=== PATIENT | male | born 1950 | race Caucasian/White ===

== ENCOUNTER → 2019-05-29 | Outpatient (CLI) | payer BC, MEDICARE ==
--- NOTE | 2019-05-29 12:10 | XR ---
EXAMINATION TYPE: XR chest 2V DATE OF EXAM: 05/29/2019 COMPARISON: None INDICATION: Mild cough TECHNIQUE: Frontal and lateral views of the chest are obtained. FINDINGS: The heart size is normal. The pulmonary vasculature is normal. The lungs are clear. There is some hyperinflation flattening the diaphragms which could be associate d with COPD. IMPRESSION: 1. No acute pulmonary process. 2. COPD
== END | disposition home or self-care (01) ==
LOC: RADXRMAIN 11:23
PROVIDERS: ATTEND Family Medicine
DX: J44.9 Chronic obstructive pulmonary disease, unspecified (principal)
CPT/HCPCS: 71046

== ENCOUNTER 2019-09-27 07:18 | Day surgery (SDC) | payer MEDICARE, BC ==
[2019-09-26 08:25] VITALS: BMI 42.0
[~2019-09-27 07:18] MED LIST: LACTATED RINGERS 1,000 ML IV SCH; LIDOCAINE 1% (10MG/ML) FOR IV START INTRADERMA PRN
[2019-09-27 07:50] VITALS: TEMP 98.4
[2019-09-27] MEDS ORDERED: PROPOFOL 10 MG/ML 20 ML VIAL IV ONE (08:18)
[2019-09-27] MEDS ORDERED: LIDOCAINE 1% INJ 10MG/ML (20 ML MDV) ONE (08:18)
--- NOTE | 2019-09-27 08:19 | P.GSHP ---
History of Present Illness H&P Date: 09/27/19 CHIEF COMPLAINT: Colon screen HISTORY OF PRESENT ILLNESS: The patient is a 68-year-old male who presents for colon screen. Lower endoscopy was offered for further evaluation and management. PAST MEDICAL HISTORY: Please see list. PAST SURGICAL HISTORY: Please see list. MEDICATIONS: Please see list. ALLERGIES: Please see list. SOCIAL HISTORY: No illicit drug use FAMILY HISTORY: No reports of Crohn disease or ulcerative colitis. REVIEW OF ORGAN SYSTEMS: CONSTITUTIONAL: No reports of fevers or chills. PHYSICAL EXAM: VITAL SIGNS: Stable GENERAL: Well-developed pleasant in no acute distress. HEENT: No scleral icterus. Extraocular movements grossly intact. Moist buccal mucosa. NECK: Supple without lymphadenopathy. CHEST: Unlabored respirations. Equal bilateral excursions. CARDIOVASCULAR: Regular rate and rhythm. Distal 2+ pulses. ABDOMEN: Soft, nontender, nondistended. MUSCULOSKELETAL: No clubbing, cyanosis, or edema. ASSESSMENT: 1. Colon screen. PLAN: 1. Recommend proceeding with a lower endoscopy Past Medical History Past Medical History: COPD, GERD/Reflux, Hypertension, Sleep Apnea/CPAP/BIPAP Additional Past Medical History / Comment(s): uses cpap,hiatal hernia History of Any Multi-Drug Resistant Organisms: None Reported Additional Past Surgical History / Comment(s): colonoscopies,kidney stones removal,drained cyst on liver with another surgery later for partial removal of liver where cyst was located Past Anesthesia/Blood Transfusion Reactions: No Reported Reaction, Motion Sickness Additional Past Anesthesia/Blood Transfusion Reaction / Comment(s): no hx blood transfusion Smoking Status: Former smoker - Past Family History Mother Family Medical History: No Reported History Father Family Medical History: Cancer Sister(s) Additional Family Medical History / Comment(s): breast,lymphatic Brother(s) Family Medical History: Cancer Additional Family Medical History / Comment(s): pancreatic,nonhodgkin's lymphoma Medications and Allergies Home Medications Medication Instructions Recorded Confirmed Type Allopurinol [Zyloprim] 100 mg PO HS 09/26/19 09/27/19 History Cholecalciferol (Vitamin D3) 1,000 unit PO DAILY 09/26/19 09/27/19 History [Vitamin D3] Fluticasone/Umeclidin/Vilanter 1 inhalation INHALATION 1500 09/26/19 09/27/19 History [Trelegy Ellipta 100-62.5-25] Furosemide [Lasix] 20 mg PO 1500 09/26/19 09/27/19 History Lisinopril 20 mg PO 1500 09/26/19 09/27/19 History Multivit-Min/Folic/Vit K/Lycop 1 each PO DAILY 09/26/19 09/27/19 History [Men's Multivitamin Tablet] Omeprazole 20 mg PO 1500 09/26/19 09/27/19 History Allergies Allergy/AdvReac Type Severity Reaction Status Date / Time No Known Allergies Allergy Verified 09/27/19 07:43 Surgical - Exam Vital Signs Temp Pulse Resp BP Pulse Ox 98.4 F 105 H 24 131/63 95 09/27/19 07:48 09/27/19 07:48 09/27/19 07:48 09/27/19 07:48 09/27/19 07:48
--- NOTE | 2019-09-27 08:55 | P.PCN ---
Date of Procedure: 09/27/19 Description of Procedure: PREOPERATIVE DIAGNOSIS: Personal history of colon polyps POSTOPERATIVE DIAGNOSIS: Tubular adenoma hepatic flexure Tubular adenoma transverse colon Pauline adenoma ascending colon Sigmoid diverticulosis OPERATION: Colonoscopy to the cecum Colonoscopy with multiple hot snare polypectomies SURGEON: Wendie Rubio MD. ANESTHESIA: MAC. INDICATIONS: The patient is an 68-year-old male who presents with personal history of high risk colon polyps. Last colonoscopy 5 years. Benefits and risks were described and informed consent was obtained. DESCRIPTION OF PROCEDURE: The patient had undergone Suprep. He had been brought into the operating room and laid in the left lateral decubitus position. After adequate intravenous sedation, the rectum was examined with 2% lidocaine jelly. The prostate was unremarkable. External hemorrhoids were encountered. The rectal tone was within normal limits. No lesions were palpated in the rectal vault. An Olympus colonoscope was advanced to the cecum. Abdominal wall pressure was used to advance the scope through a highly redundant sigmoid colon. The prep was good. Sigmoid diverticulosis was encountered. Multiple colonic polyps were found and snare polypectomy. No evidence of focal colitis was found. Retroflexion of the scope demonstrated grade 2 internal hemorrhoids without active bleeding or inflammation. The colon was desufflated. The patient had tolerated the procedure well. Withdrawal time was over 6 minutes. FINDINGS: Aronchick preparation quality scale 2 (1-5) Internal hemorrhoids, grade 2 External hemorrhoids, grade 2 No arteriovenous malformations. Sigmoid diverticulosis with moderate redundancy Removal of 3 polyps: - Snare polypectomy mid transverse colon, 7 mm tubulovillous adenoma polyp. - Snare polypectomy hepatic flexure, 6 mm flat villous adenoma polyp. - Snare polypectomy of ascending colon, 5 mm flat villous adenoma polyp. No focal colitis. RECOMMENDATIONS: Given severity of tubular adenomas, recommend repeat colonoscopy 2 years, 2021. Plan - Discharge Summary Discharge Rx Participant: No New Discharge Prescriptions: Continue Omeprazole 20 mg PO 1500 Lisinopril 20 mg PO 1500 Furosemide [Lasix] 20 mg PO 1500 Allopurinol [Zyloprim] 100 mg PO HS Cholecalciferol (Vitamin D3) [Vitamin D3] 1,000 unit PO DAILY Multivit-Min/Folic/Vit K/Lycop [Men's Multivitamin Tablet] 1 each PO DAILY Fluticasone/Umeclidin/Vilanter [Trelegy Ellipta 100-62.5-25] 1 inhalation INHALATION 1500 Discharge Medication List Allopurinol [Zyloprim] 100 mg PO HS 09/26/19 [History] Cholecalciferol (Vitamin D3) [Vitamin D3] 1,000 unit PO DAILY 09/26/19 [History] Fluticasone/Umeclidin/Vilanter [Trelegy Ellipta 100-62.5-25] 1 inhalation INHALATION 1500 09/26/19 [History] Furosemide [Lasix] 20 mg PO 1500 09/26/19 [History] Lisinopril 20 mg PO 1500 09/26/19 [History] Multivit-Min/Folic/Vit K/Lycop [Men's Multivitamin Tablet] 1 each PO DAILY 09/26/19 [History] Omeprazole 20 mg PO 1500 09/26/19 [History] Follow up Appointment(s)/Referral(s): Wendie Rubio MD [STAFF PHYSICIAN] - As Needed Patient Instructions/Handouts: Colorectal Polyps (DC), Diverticulosis Diet (GEN), Diverticulosis (DC) Activity/Diet/Wound Care/Special Instructions: Repeat colonoscopy 2 years, 2021 Discharge Disposition: HOME SELF-CARE
[2019-09-27 09:09] VITALS: RESP 20
[2019-09-27 09:25] VITALS: BP 104/59; PULSE 91
== END 2019-09-27 09:39 | disposition home or self-care (01) ==
LOC: ORWHC2ENDO 07:18
PROVIDERS: ATTEND Surgery Plastic and Reconstructive Surgery
DX: Z12.11 Encounter for screening for malignant neoplasm of colon (principal); D12.2 Benign neoplasm of ascending colon; D12.3 Benign neoplasm of transverse colon; K57.30 Diverticulosis of large intestine without perforation or abscess without bleeding; K64.4 Residual hemorrhoidal skin tags; Q43.8 Other specified congenital malformations of intestine; K64.1 Second degree hemorrhoids; J44.9 Chronic obstructive pulmonary disease, unspecified; K21.9 Gastro-esophageal reflux disease without esophagitis; I10 Essential (primary) hypertension; G47.30 Sleep apnea, unspecified; K44.9 Diaphragmatic hernia without obstruction or gangrene; K08.409 Partial loss of teeth, unspecified cause, unspecified class; Z79.899 Other long term (current) drug therapy; Z79.51 Long term (current) use of inhaled steroids; Z86.010 Personal history of colon polyps; Z99.89 Dependence on other enabling machines and devices; Z98.890 Other specified postprocedural states; Z87.442 Personal history of urinary calculi; Z87.19 Personal history of other diseases of the digestive system; Z90.49 Acquired absence of other specified parts of digestive tract; Z87.898 Personal history of other specified conditions; Z87.891 Personal history of nicotine dependence; Z80.9 Family history of malignant neoplasm, unspecified; Z80.0 Family history of malignant neoplasm of digestive organs; Z80.7 Family history of other malignant neoplasms of lymphoid, hematopoietic and related tissues
CPT/HCPCS: 88305; 45385; J2001; J2704

== ENCOUNTER → 2019-11-30 | Outpatient (CLI) | payer MEDICARE, BC ==
[~2019-11-30] MED LIST changes: +DOBUTamine DRIP for NUC MED 500 MG in DEXTROSE/WATER 1 250ML.BAG IV ONE; -LACTATED RINGERS 1,000 ML IV SCH; -LIDOCAINE 1% (10MG/ML) FOR IV START INTRADERMA PRN
--- NOTE | 2019-11-30 11:33 | ECHOF ---
Referral Reason:R06.00 dyspnea, unspecified MEASUREMENTS -------- HEIGHT: 182.9 cm WEIGHT: 140.6 kg BP: RVIDd: 3.5 cm (< 3.3) IVSd: 1.7 cm (0.6 - 1.1) LVIDd: 3.7 cm (3.9 - 5.3) LVPWd: 1.8 cm (0.6 - 1.1) IVSs: 2.3 cm LVIDs: 2.4 cm LVPWs: 1.9 cm LAESV Index (A-L): 19.53 ml/m Ao Diam: 3.7* cm (2.0 - 3.7) AV Cusp: 1.8 cm (1.5 - 2.6) MV EXCURSION: 19.783 mm (> 18.000) MV EF SLOPE: 114 mm/s (70 - 150) EPSS: 0.6 cm MV E Williams: 0.79 m/s MV DecT: 184 ms MV A Williams: 0.94 m/s MV E/A Ratio: 0.83 RAP: 5.00 mmHg RVSP: 30.40 mmHg FINDINGS -------- This was a technically difficult study with suboptimal views. The left ventricular size is normal. There is moderate concentric left ventricular hypertrophy. O verall left ventricular systolic function is low-normal with, an EF between 50 - 55 %. The right ventricle is mildly enlarged. Normal LA size by volume 22+/-6 ml/m2. The right atrium was not well visualized. xx ml of Lumason was utilized for enhancement of images. Interatrial and interventricular septum intact. There is mild aortic valve sclerosis. There is no evidence of aortic regurgitation. There is no e vidence of aortic stenosis. No mitral regurgitation. Mild tricuspid regurgitation present. There is borderline pulmonary hypertension. The right ventr icular systolic pressure, as measured by Doppler, is 30.40mmHg. The pulmonic valve was not well visualized. There is no pulmonic regurgitation present. The aortic root size is normal. IVC Not well visulized. There is no pericardial effusion. CONCLUSIONS -------- 1. The left ventricular size is normal. 2. There is moderate concentric left ventricular hypertrophy. 3. Overall left ventricular systolic function is low-normal with, an EF between 50 - 55 %. 4. The right ventricle is mildly enlarged. 5. There is mild aortic valve sclerosis. 6. Mild tricuspid regurgitation present. 7. There is borderline pulmonary hypertension. DRUGLESS PHYSICIAN: Sherlyn Michaud RDCS
--- NOTE | 2019-11-30 11:42 | P.STRESS ---
- Stress Test Note Stress Test Results/Findings: Exam Performed: dobutamine stress echo with con Exam Date: 11/30/19 Reason for Exam: Dyspnea Height: 6 ft Weight: 310 kg Protocol: Dobutamine stress echo Stage: 3 Duration of Exercise: 8:30 Resting Heart Rate: 82 Resting Blood Pressure: 190/77 Maximum Achieved Heart Rate: 140 Maximum Achieved Blood Pressure: 172/65 85% PMHR: 128 100% PMHR: 151 METS: Technologist Comment: Stress Test Results/Findings: Patient underwent dobutamine stress echo with infusion of dobutamine into Stage 3 for a total of 8 minutes and 30 seconds. Patient's maximum heart rate was 140 which represented 92 % age-predicted maximum heart rate. Stress EKG portion: At baseline patient's EKG showed normal sinus rhythm with a rate of 82 bpm, normal axis, no significant ST or T-wave abnormalities. At peak dobutamine infusion, EKG showed nonspecific 0.[address] depressions in the infe rolateral leads. Stress echo portion: 2-D echocardiogram was performed in the parasternal long, personal short, apical 2 and apical four-chamber views at rest, low-dose, peak infusion and in recovery . At baseline, echocardiogram showed left ventricular ejection fraction 60% without wall motion abnormalities. With peak infusion, echocardiogram shows improvement in left ventricular ejection fraction, increase contractility, decrease in left ventricular dimension without wall motion abnormalities consistent with a normal response to dobutamine. Conclusions: 1. Normal stress EKG and echo response to dobutamine infusion without any evidence of inducible ischemia.
--- NOTE | 2019-11-30 15:23 | ECHOS ---
Stress Test Results/Findings: Exam Performed: dobutamine stress echo with con Exam Date: 11/30/19 Reason for Exam: Dyspnea Height: 6 ft Weight: 310 kg Protocol: Dobutamine stress echo Stage: 3 Duration of Exercise: 8:30 Resting Heart Rate: 82 Resting Blood Pressure: 190/77 Maximum Achieved Heart Rate: 140 Maximum Achieved Blood Pressure: 172/65 85% PMHR: 128 100% PMHR: 151 METS: Technologist Comment: Stress Test Results/Findings: Patient underwent dobutamine stress echo with infusion of dobutamine into Stage 3 for a total of 8 minutes and 30 seconds. Patient's maximum heart rate was 140 which represented 92 % age-predicted maximum heart rate. Stress EKG portion: At baseline patient's EKG showed normal sinus rhythm with a rate of 82 bpm, normal axis, no significant ST or T-wave abnormalities. At peak dobutamine infusion, EKG showed nonspecific 0.[address] depressions in the inferolateral leads. Stress echo portion: 2-D echocardiogram was performed in the parasternal long, personal short, apical 2 and apical four-chamber views at rest, low-dose, peak infusion and in recovery. At baseline, echocardiogram showed left ventricular ejection fraction 60% without wall motion abnormalities. With peak infusion, echocardiogram shows improvement in left ventricular ejection fraction, increase contractility, decrease in left ventricular dimension without wall motion abnormalities consistent with a normal response to dobutamine. Conclusions: 1. Normal stress EKG and echo response to dobutamine infusion without any evidence of inducible ischemia. MTDD
== END | disposition home or self-care (01) ==
LOC: RADECHMAIN 08:41
PROVIDERS: ATTEND Family Medicine
DX: I08.2 Rheumatic disorders of both aortic and tricuspid valves (principal); I27.20 Pulmonary hypertension, unspecified; R06.00 Dyspnea, unspecified
CPT/HCPCS: C8929; C8930; J1250; Q9950; 93306; 93351

== ENCOUNTER → 2020-02-06 | Outpatient (CLI) | payer MEDICARE, BC ==
--- NOTE | 2020-02-06 16:04 | XR ---
EXAMINATION TYPE: XR knee complete RT DATE OF EXAM: 02/06/2020 COMPARISON: NONE HISTORY: 69-year-old male M25.561 TECHNIQUE: 3 views FINDINGS: Moderate to severe loss of cartilage and joint space compartment of the medial compartment and mild w ithin the lateral compartment. Dominant degenerative change of the patellofemoral compartment with ma rginal spurring and irregularity of the articular subchondral bone. Small knee joint effusion. Nonspe cific anterior soft tissue swelling. Extensor mechanism appears intact. No acute fracture, subluxatio n, dislocation. IMPRESSION: 1. Tricompartment osteoarthrosis, moderate to severe in the medial compartment and probably within th e patellofemoral compartment as well. 2. Small knee joint effusion is nonspecific, probably reactive. Additional anterior soft tissue swell ing.
== END | disposition home or self-care (01) ==
LOC: RADXRMAIN 14:12
PROVIDERS: ATTEND Family Medicine
DX: M17.11 Unilateral primary osteoarthritis, right knee (principal)

== ENCOUNTER 2021-06-17 08:28 | Day surgery (SDC) | payer BC, MEDICARE ==
[2021-06-15 10:16] VITALS: BMI 39.3
[~2021-06-17 08:28] MED LIST changes: -DOBUTamine DRIP for NUC MED 500 MG in DEXTROSE/WATER 1 250ML.BAG IV ONE; +LACTATED RINGERS 1,000 ML IV SCH
[2021-06-17 08:54] VITALS: TEMP 97.5
[2021-06-17] MEDS ORDERED: LIDOCAINE 1% (10MG/ML) FOR IV START INTRADERMA ONE (08:56)
--- NOTE | 2021-06-17 09:04 | P.GSHP ---
History of Present Illness H&P Date: 06/17/21 CHIEF COMPLAINT: Colon screen HISTORY OF PRESENT ILLNESS: The patient is a 70-year-old male who presents for colon screen. Lower endoscopy was offered for further evaluation and management. PAST MEDICAL HISTORY: Please see list. PAST SURGICAL HISTORY: Please see list. MEDICATIONS: Please see list. ALLERGIES: Please see list. SOCIAL HISTORY: No illicit drug use FAMILY HISTORY: No reports of Crohn disease or ulcerative colitis. REVIEW OF ORGAN SYSTEMS: CONSTITUTIONAL: No reports of fevers or chills. PHYSICAL EXAM: VITAL SIGNS: Stable GENERAL: Well-developed pleasant in no acute distress. HEENT: No scleral icterus. Extraocular movements grossly intact. Moist buccal mucosa. NECK: Supple without lymphadenopathy. CHEST: Unlabored respirations. Equal bilateral excursions. CARDIOVASCULAR: Regular rate and rhythm. Distal 2+ pulses. ABDOMEN: Soft, nontender, nondistended. MUSCULOSKELETAL: No clubbing, cyanosis, or edema. ASSESSMENT: 1. Colon screen. PLAN: 1. Recommend proceeding with a lower endoscopy Past Medical History Past Medical History: COPD, GERD/Reflux, Hearing Disorder / Deafness, Hypertension, Osteoarthritis (OA), Sleep Apnea/CPAP/BIPAP Additional Past Medical History / Comment(s): uses cpap,hiatal hernia,[place], [place] History of Any Multi-Drug Resistant Organisms: None Reported Additional Past Surgical History / Comment(s): colonoscopies,kidney stones removal,drained cyst on liver with another surgery later for partial removal of liver where cyst was located, Past Anesthesia/Blood Transfusion Reactions: Motion Sickness Additional Past Anesthesia/Blood Transfusion Reaction / Comment(s): no hx blood transfusion Smoking Status: Former smoker - Past Family History Mother Family Medical History: No Reported History Father Family Medical History: Cancer Sister(s) Family Medical History: Cancer Additional Family Medical History / Comment(s): breast,lymphatic Brother(s) Family Medical History: Cancer Additional Family Medical History / Comment(s): pancreatic,nonhodgkin's lymphoma Medications and Allergies Home Medications Medication Instructions Recorded Confirmed Type Cholecalciferol (Vitamin D3) 1,000 unit PO DAILY 09/26/19 06/15/21 History [Vitamin D3] Fluticasone/Umeclidin/Vilanter 1 inhalation INHALATION HS 09/26/19 06/15/21 History [Trelegy Ellipta 100-62.5-25] Multivit-Min/Folic/Vit K/Lycop 1 each PO DAILY 09/26/19 06/15/21 History [Men's Multivitamin Tablet] Omeprazole 20 mg PO 1500 09/26/19 06/15/21 History allopurinoL [Zyloprim] 100 mg PO HS 09/26/19 06/15/21 History lisinopriL 20 mg PO 1500 09/26/19 06/15/21 History Super Food Green 2 tab PO DAILY 06/15/21 06/15/21 History hydroCHLOROthiazide [Hydrodiuril] 25 mg PO 1500 06/15/21 06/15/21 History Allergies Allergy/AdvReac Type Severity Reaction Status Date / Time No Known Allergies Allergy Verified 09/27/19 07:43 Surgical - Exam Vital Signs Temp Pulse Resp BP Pulse Ox 97.5 F L 95 20 121/75 98 06/17/21 08:52 06/17/21 08:52 06/17/21 08:52 06/17/21 08:52 06/17/21 08:52
[2021-06-17] MEDS ORDERED: LIDOCAINE 1% INJ 10MG/ML (20 ML MDV) ONE (09:26)
[2021-06-17] MEDS ORDERED: PROPOFOL 10 MG/ML 20 ML VIAL IV ONE (09:26)
--- NOTE | 2021-06-17 10:24 | P.PCN ---
Date of Procedure: 06/17/21 Description of Procedure: PREOPERATIVE DIAGNOSIS: Personal history of colon polyps POSTOPERATIVE DIAGNOSIS: Tubular adenoma ascending colon Tubular adenoma hepatic flexure Tubular adenoma transverse colon Sigmoid diverticulosis Internal hemorrhoids, grade 2 OPERATION: Colonoscopy to the ileocecal valve and appendiceal orifice, cecum Colonoscopy with hot snare polypectomy SURGEON: Wendie Rubio MD. ANESTHESIA: MAC. INDICATIONS: The patient is an 70-year-old male who presents with personal history of colon polyps. Last colonoscopy less than 5 years ago. Benefits and risks were described and informed consent was obtained. DESCRIPTION OF PROCEDURE: The patient had undergone Sutab prep. The patient had been brought into the operating room and laid in the left lateral decubitus position. After adequate intravenous sedation, the rectum was examined with 2% lidocaine jelly. The prostate was unremarkable. No external hemorrhoids were encountered. The rectal tone was within normal limits. No lesions were palpated in the rectal vault. An Olympus colonoscope was advanced until the cecum, ileocecal valve and appendiceal orifice were clearly viewed. The prep was excellent. Sigmoid diverticulosis was encountered. Colonic polyps were found and removed. No evidence of focal colitis was found. Retroflexion of the scope demonstrated grade 2 internal hemorrhoids without active bleeding or inflammation. The colon was desufflated. The patient had tolerated the procedure well. Withdrawal time was over 6 minutes. FINDINGS: Aronchick preparation quality scale 1 (1-5) Internal hemorrhoids, grade 2 No external hemorrhoids, grade 4. No arteriovenous malformations. Sigmoid diverticulosis Removal of 6 polyps: - Snare polypectomy 4, ascending colon polyp, 3 to 7 mm tubulovillous adenomas - Snare polypectomy proximal transverse colon, 11 mm flat villous adenoma polyp. - Snare polypectomy hepatic flexure, 8 mm flat villous adenoma polyp No focal colitis. RECOMMENDATIONS: Given severity of tubular adenomas, recommend repeat colonoscopy 2 years, 2023 Plan - Discharge Summary Discharge Rx Participant: No New Discharge Prescriptions: Continue Omeprazole 20 mg PO 1500 lisinopriL 20 mg PO 1500 allopurinoL [Zyloprim] 100 mg PO HS Cholecalciferol (Vitamin D3) [Vitamin D3] 1,000 unit PO DAILY Multivit-Min/Folic/Vit K/Lycop [Men's Multivitamin Tablet] 1 each PO DAILY Fluticasone/Umeclidin/Vilanter [Trelegy Ellipta 100-62.5-25] 1 inhalation INHALATION HS hydroCHLOROthiazide [Hydrodiuril] 25 mg PO 1500 Super Food Green 2 tab PO DAILY Discharge Medication List Cholecalciferol (Vitamin D3) [Vitamin D3] 1,000 unit PO DAILY 09/26/19 [History] Fluticasone/Umeclidin/Vilanter [Trelegy Ellipta 100-62.5-25] 1 inhalation INHALATION HS 09/26/19 [History] Multivit-Min/Folic/Vit K/Lycop [Men's Multivitamin Tablet] 1 each PO DAILY 09/26/19 [History] Omeprazole 20 mg PO 1500 09/26/19 [History] allopurinoL [Zyloprim] 100 mg PO HS 09/26/19 [History] lisinopriL 20 mg PO 1500 09/26/19 [History] Super Food Green 2 tab PO DAILY 06/15/21 [History] hydroCHLOROthiazide [Hydrodiuril] 25 mg PO 1500 06/15/21 [History] Follow up Appointment(s)/Referral(s): Wendie Rubio MD [STAFF PHYSICIAN] - As Needed Patient Instructions/Handouts: Diverticulosis (DC), Colorectal Polyps (GEN), Diverticulosis Diet (GEN) Activity/Diet/Wound Care/Special Instructions: Repeat colonoscopy in 2 years, 2023 Discharge Disposition: HOME SELF-CARE
[2021-06-17 10:29] VITALS: BP 118/69; PULSE 86; RESP 16
== END 2021-06-17 11:13 | disposition home or self-care (01) ==
LOC: ORWHC2ENDO 08:28
PROVIDERS: ATTEND Surgery Plastic and Reconstructive Surgery
DX: Z12.11 Encounter for screening for malignant neoplasm of colon (principal); D12.2 Benign neoplasm of ascending colon; D12.3 Benign neoplasm of transverse colon; K57.30 Diverticulosis of large intestine without perforation or abscess without bleeding; K64.1 Second degree hemorrhoids; Z86.010 Personal history of colon polyps; I10 Essential (primary) hypertension; J44.9 Chronic obstructive pulmonary disease, unspecified; K21.9 Gastro-esophageal reflux disease without esophagitis; M19.90 Unspecified osteoarthritis, unspecified site; K44.9 Diaphragmatic hernia without obstruction or gangrene; H91.90 Unspecified hearing loss, unspecified ear; M10.9 Gout, unspecified; G47.33 Obstructive sleep apnea (adult) (pediatric); Z79.51 Long term (current) use of inhaled steroids; Z79.899 Other long term (current) drug therapy; Z87.442 Personal history of urinary calculi; Z98.890 Other specified postprocedural states; Z87.891 Personal history of nicotine dependence; Z80.3 Family history of malignant neoplasm of breast; Z80.7 Family history of other malignant neoplasms of lymphoid, hematopoietic and related tissues; Z80.0 Family history of malignant neoplasm of digestive organs
CPT/HCPCS: 88305; 45385; J2001; J2704

== ENCOUNTER → 2021-12-22 | Outpatient (CLI) | payer MEDICARE ==
[2021-12-22 10:35] LABS: Partial Thromboplastin Time 24.7 sec (22.0-30.0); Prothrombin Time 10.7 sec (9.0-12.0)
[2021-12-22 14:15] LABS: HCT 40.5 % (39.6-50.0); HGB 13.1 g/dL (13.0-17.0); MCH 31.7 pg (27.0-32.0); MCHC 32.3 g/dL (32.0-37.0); MCV 98.1 fL (80.0-97.0); Mean Platelet Volume 11.3 fL (9.5-12.2); NRBC Per 100 WBC 0 /100 WBCS (0.0-0.0); Platelet Count 265 X 10*3/uL (140-440); RBC 4.13 X 10*6/uL (4.40-5.60); RDW 12.9 % (11.5-14.5); WBC 9.57 X 10*3/uL (4.50-10.00)
[2021-12-22 14:30] LABS: African American GFR (CKD) 87.4 (60.0-200.0); Albumin 4.2 g/dL (3.8-4.9); Albumin/Globulin Ratio 1.45 (1.60-3.17); Anion Gap 12.2 mmol/L (10.00-18.00); BUN/Creat Ratio 14.6 Ratio (12.00-20.00); Blood Urea Nitrogen 14.6 mg/dL (9.0-27.0); Calcium 9.4 mg/dL (8.7-10.3); Carbon Dioxide 26.8 mmol/L (20.0-27.5); Globulin 2.9 g/dL (1.6-3.3); Non-African American GFR(CKD) 75.4 (60.0-200.0); Potassium 4.1 mmol/L (3.5-5.5); Total Bilirubin 0.5 mg/dL (0.30-1.20); Total Protein 7.1 g/dL (6.2-8.2)
[2021-12-22 15:36] LABS: Appearance,Urine Clear (Clear); Bilirubin,Urine Negative (Negative); Blood,Urine Negative (Negative); Color,Urine Yellow (Yellow); Ketones,Urine Negative (Negative); Nitrite,Urine Negative (Negative); Specific Gravity,Urine 1.014 (1.001-1.030); Urobilinogen,Urine 0.2 (0.2,1.0)
== END | disposition home or self-care (01) ==
LOC: LABPAT 09:36
PROVIDERS: ATTEND Orthopaedic Surgery
DX: Z01.812 Encounter for preprocedural laboratory examination (principal); M17.11 Unilateral primary osteoarthritis, right knee
CPT/HCPCS: 80053; 81003; 85027; 85610; 85730; 87070; 93005

== ENCOUNTER → 2021-12-31 | Outpatient (CLI) | payer MEDICARE ==
--- NOTE | 2022-01-01 10:41 | CA ---
Transthoracic Echo Report Name: Esau Arredondo Age: 71 Gender: M : 1950 Exam Date: 12/31/2021 13:37 Exam Location: [place] [facility] Ht (in): 72 Wt (lb): 300 Ordering Physician: Barrington Snider DO Attending/Referring Phys: Eugene Stewart DO Claim Examiner Sherlyn Michaud RDCS Procedure CPT: Indications: R06.00 Dyspnea Cardiac Hx: Technical Quality: Fair Contrast 1: Total Dose (mL): Contrast 2: Total Dose (mL): MEASUREMENTS (Male / Female) Normal Values 2D ECHO LV Diastolic Diameter PLAX 3.6 cm 4.2 - 5.9 / 3.9 - 5.3 cm LV Systolic Diameter PLAX 2.7 cm IVS Diastolic Thickness 1.7 cm 0.6 - 1.0 / 0.6 - 0.9 cm LVPW Diastolic Thickness 1.4 cm 0.6 - 1.0 / 0.6 - 0.9 cm LV Relative Wall Thickness 0.9 RV Internal Dim ED PLAX 3.4 cm M-MODE Aortic Root Diameter MM 3.9 cm LA Systolic Diameter MM 3.1 cm LA Ao Ratio MM 0.8 AV Cusp Separation MM 2.2 cm DOPPLER AV Peak Velocity 124.1 cm/s AV Peak Gradient 6.2 mmHg LVOT Peak Velocity 111.2 cm/s LVOT Peak Gradient 4.9 mmHg MV Area PHT 2.1 cm??? Mitral E Point Velocity 67.4 cm/s Mitral A Point Velocity 92.1 cm/s Mitral E to A Ratio 0.7 MV Deceleration Time 360.3 ms TR Peak Velocity 181.9 cm/s TR Peak Gradient 13.2 mmHg Right Ventricular Systolic Press 18.2 mmHg FINDINGS Left Ventricle Moderately increased left ventricular wall thickness. Normal left ventricular systolic function with no obvious regional wall motion abnormalities. Left ventricular ejection fraction is estimated at 50-55 %. Right Ventricle Right ventricle not well visualized. Mild right ventricular dilatation. Right Atrium Right atrium not well visualized. Left Atrium Normal left atrial size. Mitral Valve No mitral stenosis, regurgitation or prolapse. Aortic Valve No aortic valve stenosis or regurgitation. Tricuspid Valve Mild tricuspid regurgitation. Pulmonic Valve Trace pulmonic regurgitation. Pericardium No pericardial effusion. Aorta Normal size aortic root and proximal ascending aorta. CONCLUSIONS Technically difficult study Normal left ventricular dimension and systolic function. Moderate concentric left ventricular hypertrophy Poorly visualized intracardiac valves Previewed by: Dr. Patrick Meza MD (Electronically Signed) Final Date: 01 January 2022 10:40
== END | disposition home or self-care (01) ==
LOC: RADECHMAIN 13:22
PROVIDERS: ATTEND Family Medicine
DX: R06.00 Dyspnea, unspecified (principal); I51.7 Cardiomegaly
CPT/HCPCS: 93306

== ENCOUNTER 2022-01-04 05:57 | Day surgery (SDC) | payer MEDICARE ==
[2021-12-30 10:00] VITALS: BMI 40.6
[~2022-01-04 05:57] MED LIST changes: +ACETAMINOPHEN TAB 500 MG TAB PO PRN; +GABAPENTIN 300 MG CAP PO PRN; -LACTATED RINGERS 1,000 ML IV SCH; +MELOXICAM 7.5 MG TAB PO PRN; +TRANEXAMIC ACID IN NACL,ISO-OS 1,000 MG in SALINE 1 100ML.BAG IVPB PRN; +ceFAZolin 3 GM in SODIUM CHLORIDE 0.9% 100 ML IVPB PRN
[2022-01-04] MEDS ORDERED: ONDANSETRON 4 MG/2 ML VIAL IVP ONE (05:59)
[2022-01-04] MEDS ORDERED: HYDROmorphone 0.5 MG/0.5 ML SYRINGE IVP PRN ×4 (05:59→06:55)
[2022-01-04] MEDS ORDERED: LIDOCAINE 1% (10MG/ML) FOR IV START INTRADERMA PRN (05:59)
[2022-01-04] MEDS ORDERED: NALOXONE 0.4 MG/ML 1 ML VIAL IV PRN (06:55)
[2022-01-04] MEDS ORDERED: NA PHOS,M-B/NA PHOS,DI-BA 133 ML ENEMA RECTAL PRN (06:55)
[2022-01-04] MEDS ORDERED: MAGNESIUM HYDROXIDE 2,400 MG/10 ML CUP PO PRN (06:55)
[2022-01-04] MEDS ORDERED: ONDANSETRON 4 MG/2 ML VIAL IVP PRN (06:55)
[2022-01-04] MEDS ORDERED: bisacodyL 10 MG SUPP RECTAL PRN (06:55)
[2022-01-04] MEDS ORDERED: HYDROcodone/APAP 7.5-325MG 1 EACH TAB PO PRN (06:58)
[2022-01-04] MEDS ORDERED: LACTATED RINGERS 1,000 ML IV ONE ×2 (07:00→08:36)
[2022-01-04] MEDS ORDERED: MIDAZOLAM 2 MG/2 ML VIAL IVP ONE (07:04)
[2022-01-04] MEDS ORDERED: SODIUM CHLORIDE 0.9% (PF) 10 ML VIAL ONE (07:25)
[2022-01-04] MEDS ORDERED: ROPIVACAINE 5 MG/ML 30 ML VIAL ONE (07:25)
[2022-01-04] MEDS ORDERED: fentaNYL (PF) 50 MCG/ML 2 ML AMP ONE (07:25)
[2022-01-04] MEDS ORDERED: TRANEXAMIC ACID IN NACL,ISO-OS 1,000 MG/100 ML BAG ONE (07:25)
[2022-01-04] MEDS ORDERED: PHENYLEPHRINE-0.9% NACL SYG 1,000 MCG/10 ML SYRINGE ONE (07:25)
[2022-01-04] MEDS ORDERED: PROPOFOL 10 MG/ML 20 ML VIAL IV ONE (07:25)
[2022-01-04] MEDS ORDERED: MIDAZOLAM 2 MG/2 ML VIAL ONE (07:25)
[2022-01-04] MEDS ORDERED: DEXAMETHASONE SOD PHOSPHATE 4 MG/ML 1 ML VIAL ONE (07:25)
[2022-01-04] MEDS ORDERED: ceFAZolin 1,000 MG in SODIUM CHLORIDE 0.9% 1,000 ML IRRIGATION ONE (07:29)
--- NOTE | 2022-01-04 07:53 | P.ANPRN ---
Procedure Note - Anesthesia - Nerve Block Performed Right Adductor Canal Infusion Time Out Performed: Yes (702) Date of Procedure: 01/04/22 Procedure Start Time: 07:03 Procedure Stop Time: 07:13 Location of Patient: PreOp Indication: Acute Post-Operative Pain, Requested by Surgeon Sedation Type: Sedate with meaningful contact maintained Preparation: Sterile Prep, Sterile Dressing Position: Supine Catheter: Indwelling Needle Types: Pajunk Needle Gauge: 18 Ultrasound used to visualize needle placement: Yes Ultrasound used to observe medication spread: Yes Injectate: Other (see comment) (20 ml of block solution containing 10 ml of 0.5% ropivacaine, 10 ML of preservative-free 0.9% normal saline) Blood Aspirated: No Pain Paresthesia on Injection Noted: No Resistance on Injection: Normal Image Stored and Saved: Yes Events: Uneventful and Well Tolerated Right iPack Single Time Out Performed: Yes (702) Date of Procedure: 01/04/22 Procedure Start Time: 07:13 Procedure Stop Time: :18 Location of Patient: PreOp Indication: Acute Post-Operative Pain, Requested by Surgeon Sedation Type: Sedate with meaningful contact maintained Preparation: Sterile Prep Position: Supine Catheter: None Needle Types: Pajunk Needle Gauge: 21 Ultrasound used to visualize needle placement: Yes Ultrasound used to observe medication spread: Yes Injectate: 0.5% Ropivacaine (see comment for volume) Blood Aspirated: No Pain Paresthesia on Injection Noted: No Resistance on Injection: Normal Image Stored and Saved: Yes Events: Uneventful and Well Tolerated (20 ml of block solution containing 10 ml of 0.5% ropivacaine, 9 ML of preservative-free 0.9% normal saline mixed with 4MG of dexamethasone)
--- NOTE | 2022-01-04 08:45 | P.OP ---
Date of Procedure: 01/04/22 Preoperative Diagnosis: Severe osteoarthritis right knee Postoperative Diagnosis: Severe osteoarthritis right knee Procedure(s) Performed: Right total knee arthroplasty Implants: [employer] Journey II CR Oxinium cruciate retaining femoral component size 7, right [employer] Journey nonporous tibial baseplate size 6, right [employer] Journey II, XLPE Deep Dished articular insert, size11 mm, Size 5- 6, right [employer] Journey Ирина II resurfacing patellar component, oval, 32 mm All components were cemented using Palacos R bone cement The articulation is Oxinium on polyethylene Anesthesia: spinal Surgeon: Eugene Stewart River Expedition Guide #1: Daja Lawton Estimated Blood Loss (ml): 50 Pathology: other (Bone cartilage) Condition: stable Disposition: PACU Indications for Procedure: After failure of conservative treatment we discussed the surgical and nonsurgical treatment options at length. Patient wishes to proceed with a total knee arthroplasty. Complications specific to this procedure were discussed at length, including but not limited to infection, bleeding, stiffness, and nerve injury. Covid-19 was also discussed at length with the patient, and they are aware of the current policies and procedures. The patient was given the option of delaying surgery, but they elect to proceed knowing these risks. Patient is aware of all these complications and informed consent was obtained Operative Findings: The operative findings are consistent with severe osteoarthritis of the right knee Description of Procedure: Patient was seen in the preoperative area and the consent was reviewed and the operative site was marked with a skin marker. The patient verified the procedure and the operative site. An adductor canal pain catheter and an iPACK block was placed by anesthesia in the preoperative area. The patient was then brought to the operating room and given preoperative antibiotics intravenously. A gram of transexamic acid was given intravenously. A spinal anesthetic was administered by the anesthesia department. A tourniquet was placed on the upper thigh and the lower extremity was prepped with chlorhexidine and draped in usual sterile fashion. A universal timeout was then performed which confirmed the patient's name, surgical site, ALLERGIES, and consent. The lower extremity was then exsanguinated and tourniquet was inflated to 250 mmHg. A standard anterior midline approach to the knee was performed. The skin and subcutaneous tissue were sharply dissected down to the patellar tendon. A medial parapatellar arthrotomy was then performed. The knee was then extended, the patellar was everted, and the knee was again flexed. The infra-patellar fat pad was removed in order to enhance exposure. The anterior horns of both menisci were excised, and a release was performed to the posterior medial aspect of the knee. On gross visual inspection, there was complete loss of articular cartilage in the medial and patellofemoral joint spaces. There was also significant cartilage damage in the lateral compartment. There were multiple periarticular osteophytes globally about the knee which were then removed with a Ronguer. The femoral canal was then opened with the 9.5 mm intramedullary drill. The 8 mm intramedullary jurgen was then inserted into the femoral canal with the distal femoral cutting guide set for 5 of valgus. The distal femoral cutting block was then pinned in place. The intramedullary jurgen was then removed, and the distal femur was then cut. The cutting block was then removed and the cut was checked for symmetry. The resected bone was then measured to confirm the appropriate distal femoral resection. Next, the sizing guide was then placed and set for 3 external rotation based off of the epicondylar axis and Whitesides line. Pins were then placed and the drill holes, and the femur was sized with the sizing stylus. The pins were then removed, and the sizing guide was then removed. The spikes of the femoral block was then placed into the predrilled holes, and malleted into place. Two 45 mm pins were then placed into the fixation holes on the cutting block. An wayne wing was then used to ensure there would be no notching with the anterior cut. The anterior condyles were cut without notching. The anterior chord cut was then performed, followed by the posterior cut, posterior chamfer cut, and the anterior chamfer cut. The collateral ligaments were protected during the entire process. The cutting block was then removed. Any remaining bone and osteophytes were removed from the femur with a Ronguer. The femoral canal was plugged with autologous bone. Attention was then directed to the tibia. The remaining ACL was removed with a Ronguer, and the tibia was then gently subluxed forward with a large bent knee retractor. Any remaining menisci were excised. The posterior lateral corner was cauterized in order to coagulate the lateral geniculate artery. The extra medullary tibial cutting guide was then placed, set for the appropriate rotation, slope, and depth of resection. The proximal tibia cutting guide was then pinned in place. Proximal tibia was then cut and sized. The femoral trial was placed. A narrow saw blade was then used to remove the anterior intracondylar femoral bone. The CR notch trial was then placed. The tibial trial was placed with the appropriate-sized insert. The knee was able to fully extend and flex to 130 and was stable throughout all range of motion. The knee was then extended and the patella was everted. Patella was then measured, and then using an osteotomy guide, the patella was cut at the appropriate level. The patella was then measured and drilled and the patella trial was then placed. The knee was then taken through range of motion with the patella trial and the patella tracked normally using the no thumbs technique. The knee was then extended patella trial was then removed and the patella was everted. Knee was then flexed and lug holes were drilled through the femoral trial and the femoral trial was then removed. The tibial was then re-exposed, and the tibial broach guide was then pinned in place after it was set for the appropriate rotation to allow for the most coverage without overhang. The tibia was then reamed and broached. The cut surfaces of bone were then irrigated with pulsatile lavage. The knee was also irrigated with Irrisept solution. The components were then opened, the cement was mixed, and the components were then cemented in place. The cement was allowed to harden with the knee in full extension. After the cemented hardened, the tourniquet was released and hemostasis was obtained. A second gram of transexamic acid was given intravenously. The knee was again irrigated. The knee was again taken through range of motion and found to be stable throughout all range of motion of 0-130, and the patella tracked normally. The fascia was then closed with 0 Vicryl followed by #2 strata fix suture. The subcutaneous tissue was closed with 3-0 Vicryl and 3-0 strata fix. Exofin glue was used for the skin and placed with the knee in flexion. After the glue had dried, and Optafoam silver impregnated dressing was applied. The patient was then transferred to recovery room in stable condition. The reference assistant MEÑO Mistry was required due the complexity surgery and the need for a skilled surgical garment assembler. She assisted in positioning, draping, retraction, and closure of the wound.
--- NOTE | 2022-01-04 09:48 | XR ---
EXAMINATION TYPE: XR knee limited RT DATE OF EXAM: 01/04/2022 9:42 AM INDICATION: Patient age:Male; 71 years old; Reason for study: Evaluation for Postop abnormality and alignment; [facility]. COMPARISON: Right knee radiograph 02/06/2020. TECHNIQUE: The Right knee(s) was examined in frontal and crosstable lateral projections. FINDINGS: Postsurgical changes from total knee arthroplasty with distal femoral and proximal tibial components. Hardware appears intact with appropriate alignment. Additional postsurgical changes of t he posterior patella. There is associated soft tissue gas and edema identified. No acute fracture or dislocation. IMPRESSION: Postsurgical changes from right total knee arthroplasty. Hardware appears intact with appropriate ali gnment.
[2022-01-04] MEDS ORDERED: ROPIVACAINE 1,100 MG, SODIUM CHLORIDE 0.9% 500 ML 330 ML, EMPTY PAIN BALL 1 EACH MISCELLANE PRN ×2 (10:06)
[2022-01-04] MEDS: LACTATED RINGERS 1,000 ML IV SCH (11:42)
[2022-01-04] MEDS: SODIUM CHLORIDE 0.9% 1,000 ML IV SCH ×2 (12:24→19:29)
[2022-01-04] MEDS: HYDROcodone/APAP 7.5-325MG 1 EACH TAB PO PRN ×2 (13:39→23:49)
[2022-01-04] MEDS: IPRATROPIUM 0.5 MG/2.5 ML NEBU INHALATION SCH ×2 (16:40→20:16)
[2022-01-04] MEDS: ASPIRIN 325 MG TAB PO SCH (19:27)
[2022-01-04] MEDS: SYMBICORT 80-4.5 MCG INHALER INHALATION SCH (20:16)
[2022-01-04] MEDS ORDERED: allopurinoL 100 MG TAB PO SCH (21:00)
[2022-01-04] MEDS ORDERED: SENNOSIDES-DOCUSATE SODIUM 1 EACH TAB PO SCH (21:00)
--- NOTE | 2022-01-04 22:04 | P.CONS ---
History of Present Illness - Reason for Consult Consult date: 01/04/22 Medical management - Chief Complaint Status post right total knee arthroplasty - History of Present Illness Patient is a 71-year-old male with a known history of obstructive sleep apnea on CPAP at home, COPD, hypertension, GERD, hearing disorder/deafness and prior history of smoking was admitted to hospital for elective right total knee arthroplasty. Patient is postoperative day 0. Status post right total knee arthroplasty. Postoperatively blood pressure was low. Patient otherwise denied any complaints of dizziness or lightheadedness. No chest pain or shortness of breath no cough or sputum production. Denies any dysuria or hematuria. Medicine service was consulted for medical management. Review of Systems Constitutional: Patient denies any fever or chills . no Generalized weakness. Abdomen: Patient denied any nausea or vomiting or abd. pain Cardiovascular: Patient denies any chest pain or short of breath no palpitations. Respiratory: patient denied any cough . no sputum production. No shortness of breath Neurologic: Patient denied any numbness or tingling headache. Musculoskeletal: Patient denies any complaints of joint swelling or deformity. Skin: Negative Psychiatric: Negative Endocrine: No heat or cold intolerance. No recent weight gain. Genitourinary: No dysuria or hematuria. All other 14 point ROS negative except the above Past Medical History Past Medical History: COPD, GERD/Reflux, Hearing Disorder / Deafness, Hypertension, Osteoarthritis (OA), Sleep Apnea/CPAP/BIPAP Additional Past Medical History / Comment(s): uses cpap,hiatal hernia,EKLUTNA, GOUT History of Any Multi-Drug Resistant Organisms: None Reported Additional Past Surgical History / Comment(s): colonoscopies,kidney stones removal,drained cyst on liver with another surgery later for removal of CYST ON liver -LAPAROSCOPIC, TRIK 01/04/22 Past Anesthesia/Blood Transfusion Reactions: Motion Sickness Additional Past Anesthesia/Blood Transfusion Reaction / Comm: no hx blood transfusion Past Psychological History: No Psychological Hx Reported Smoking Status: Former smoker Past Alcohol Use History: Rare Additional Past Alcohol Use History / Comment(s): quit smoking cigar or pipe QUIT IN 1999,smoked 3 CIGARS A WEEK STARTED SMOKING CIG IN 1969 QUIT 1970 Past Drug Use History: None Reported - Past Family History Mother Family Medical History: No Reported History Father Family Medical History: Cancer Sister(s) Family Medical History: Cancer Additional Family Medical History / Comment(s): breast,lymphatic Brother(s) Family Medical History: Cancer Additional Family Medical History / Comment(s): pancreatic,nonhodgkin's lymphoma Medications and Allergies Home Medications Medication Instructions Recorded Confirmed Type Cholecalciferol (Vitamin D3) 1,000 unit PO DAILY 09/26/19 01/04/22 History [Vitamin D3] Fluticasone/Umeclidin/Vilanter 1 inhalation INHALATION HS 09/26/19 01/04/22 History [Trelegy Ellipta 100-62.5-25] Multivit-Min/Folic/Vit K/Lycop 1 each PO DAILY 09/26/19 01/04/22 History [Men's Multivitamin Tablet] Omeprazole 20 mg PO DAILY 09/26/19 01/04/22 History allopurinoL [Zyloprim] 100 mg PO HS 09/26/19 01/04/22 History lisinopriL 20 mg PO DAILY 09/26/19 01/04/22 History Super Food Green 2 tab PO DAILY 06/15/21 01/04/22 History hydroCHLOROthiazide [Hydrodiuril] 25 mg PO DAILY 06/15/21 01/04/22 History Acetaminophen [Tylenol Extra 500 - 1,000 mg PO Q6H PRN 01/01/22 01/04/22 History Strength] Aspirin 325 mg PO BID #60 tab 01/04/22 Rx HYDROcodone/APAP 7.5-325MG [[place] 1 - 2 tab PO Q6H PRN #32 tab 01/04/22 Rx 7.5-325] Sennosides [Senokot] 2 tab PO DAILY PRN #60 tablet 01/04/22 Rx Allergies Allergy/AdvReac Type Severity Reaction Status Date / Time No Known Allergies Allergy Verified 01/04/22 06:40 Physical Exam Vitals: Vital Signs Temp Pulse Pulse Pulse Pulse Resp BP 01/04/22 20:26 100 01/04/22 20:19 99 01/04/22 19:59 98.4 F 99 18 99/63 01/04/22 16:52 88 01/04/22 16:40 88 01/04/22 14:07 97.9 F 87 17 145/78 01/04/22 13:19 97.6 F 93 17 107/51 01/04/22 11:55 97.9 F 75 16 133/92 01/04/22 11:45 77 16 01/04/22 11:30 72 16 01/04/22 11:15 72 16 01/04/22 11:02 75 16 01/04/22 10:47 74 16 01/04/22 10:31 67 16 01/04/22 10:15 80 16 01/04/22 10:01 73 16 01/04/22 09:45 82 16 01/04/22 09:32 72 16 01/04/22 09:16 97.4 F L 68 18 01/04/22 07:25 91 17 01/04/22 06:43 97.7 F 95 21 BP Pulse Ox 01/04/22 20:26 01/04/22 20:19 01/04/22 19:59 95 01/04/22 16:52 01/04/22 16:40 01/04/22 14:07 97 01/04/22 13:19 96 01/04/22 11:55 96 01/04/22 11:45 113/60 98 01/04/22 11:30 113/60 98 01/04/22 11:15 108/57 98 01/04/22 11:02 109/56 98 01/04/22 10:47 108/58 98 01/04/22 10:31 106/55 98 01/04/22 10:15 119/58 98 01/04/22 10:01 106/59 98 01/04/22 09:45 115/58 98 01/04/22 09:32 106/59 98 01/04/22 09:16 107/59 98 01/04/22 07:25 129/68 94 L 01/04/22 06:43 128/79 96 Intake and Output 01/04/22 01/04/22 01/04/22 06:59 14:59 22:59 Intake Total 1201 Output Total 50 Balance 1151 Intake: IV 1201 Output: Estimated Blood Loss 50 Other: # Voids 3 Weight 139.4 kg PHYSICAL EXAMINATION: Patient is lying in the bed comfortably, no acute distress, awake alert and oriented.. HEENT: Normocephalic. Neck is supple. Pupils reactive. Nostrils clear. Oral cavity is moist. Neck reveals no JVD, carotid bruits, or thyromegaly. CHEST EXAMINATION: Trachea is central. Symmetrical expansion. Lung becerra clear to auscultation and percussion. Bibasilar diminished sounds. CARDIAC: Normal S1, S2 with no gallops. No murmurs ABDOMEN: Soft. Bowel sounds present. Nontender. No organomegaly. No abdominal bruits. Extremities: reveal no edema. No clubbing or cyanosis Neurologically awake, alert, oriented x3 with well-coordinated movements. No focal deficits noted Skin: No rash or skin lesions. Psychiatric: Coperative. Nonsuicidal, Musculoskeletal: No joint swelling or deformity. Normal range of motion. Surgical site is intact. Assessment and Plan Assessment: Status post right total knee arthroplasty. Postoperative day 0 Hypotension likely due to pain medications and anesthesia. Hypertension patient is on lisinopril and hydrochlorothiazide at home. Hyperlipidemia Obstructive sleep apnea on CPAP at home. Osteoarthritis Morbid obesity BMI 41.7 Hearing disorder/deafness Prior history of smoking COPD DVT prophylaxis Plan: Patient with current IV hydration with normal saline. Blood pressure medications on hold until improvement in blood pressure. Limit narcotic pain medication use. Increase incentive spirometry and bowel regimen. Fibrillation every 6 hourly as needed for shortness of breath. Patient will be started back on home medications and CPAP at bedtime. Continue to follow closely and further recommendations based on clinical course. Thank you for your consult. Time with Patient: Greater than 30
[2022-01-05] MEDS: HYDROcodone/APAP 7.5-325MG 1 EACH TAB PO PRN ×2 (07:05→12:24)
[2022-01-05] MEDS: ASPIRIN 325 MG TAB PO SCH (07:06)
[2022-01-05] MEDS: LACTATED RINGERS 1,000 ML IV SCH (07:06)
[2022-01-05] MEDS: SODIUM CHLORIDE 0.9% 1,000 ML IV SCH (07:06)
[2022-01-05 08:00] VITALS: BP 97/60; TEMP 98
--- NOTE | 2022-01-05 08:43 | P.DS ---
Providers Expected date of discharge: 01/05/22 Attending physician: Eugene Stewart Consults: 01/04/22 06:55 Consult Physician Routine Consulting Provider: Lauren Trammell Consult Reason/Comments: medical management Do you want consulting provider notified?: Yes Primary care physician: Barrington Snider - Discharge Diagnosis(es) (1) Osteoarthritis of right knee Current Visit: Yes Status: Acute (2) Status post total right knee replacement Current Visit: Yes Status: Acute Hospital Course: This is a 71-year-old male with known history of degenerative arthritis of the right knee. The patient presented for evaluation as an outpatient. After discussion and consideration patient elects to proceed with total knee arthroplasty. The patient is seen preoperatively by Dr. Stewart and medically cleared for surgery by their primary care physician. Patient is admitted to [facility] on 01/04/2022 for total knee arthroplasty. The procedure is performed without complication or sequelae. The patient is doing well postoperatively. Labs and vital signs are stable on day of discharge. On day of discharge patient's knee incision is healing well. There is minimal erythema. There is no drainage noted at this time. There is minimal soft tiss ue swelling to the knee. Patient has full foot and ankle motion without difficulty or pain. Calf is soft and nontender to palpation. Neurovascular status to the right lower extremity is intact. Patient is discharged home in good condition. Please see med rec for accurate list of home medications. Plan - Discharge Summary Discharge Rx Participant: Yes New Discharge Prescriptions: New Aspirin 325 mg PO BID #60 tab Sennosides [Senokot] 2 tab PO DAILY PRN #60 tablet PRN Reason: Constipation HYDROcodone/APAP 7.5-325MG [[place] 7.5-325] 1 - 2 tab PO Q6H PRN #32 tab PRN Reason: Pain No Action Omeprazole 20 mg PO DAILY lisinopriL 20 mg PO DAILY allopurinoL [Zyloprim] 100 mg PO HS Cholecalciferol (Vitamin D3) [Vitamin D3] 1,000 unit PO DAILY Multivit-Min/Folic/Vit K/Lycop [Men's Multivitamin Tablet] 1 each PO DAILY Fluticasone/Umeclidin/Vilanter [Trelegy Ellipta 100-62.5-25] 1 inhalation INHALATION HS hydroCHLOROthiazide [Hydrodiuril] 25 mg PO DAILY Super Food Green 2 tab PO DAILY Acetaminophen [Tylenol Extra Strength] 500 - 1,000 mg PO Q6H PRN PRN Reason: Pain Discharge Medication List Cholecalciferol (Vitamin D3) [Vitamin D3] 1,000 unit PO DAILY 09/26/19 [History] Fluticasone/Umeclidin/Vilanter [Trelegy Ellipta 100-62.5-25] 1 inhalation INHALATION HS 09/26/19 [History] Multivit-Min/Folic/Vit K/Lycop [Men's Multivitamin Tablet] 1 each PO DAILY 09/26/19 [History] Omeprazole 20 mg PO DAILY 09/26/19 [History] allopurinoL [Zyloprim] 100 mg PO HS 09/26/19 [History] lisinopriL 20 mg PO DAILY 09/26/19 [History] Super Food Green 2 tab PO DAILY 06/15/21 [History] hydroCHLOROthiazide [Hydrodiuril] 25 mg PO DAILY 06/15/21 [History] Acetaminophen [Tylenol Extra Strength] 500 - 1,000 mg PO Q6H PRN 01/01/22 [History] Aspirin 325 mg PO BID #60 tab 01/04/22 [Rx] HYDROcodone/APAP 7.5-325MG [[place] 7.5-325] 1 - 2 tab PO Q6H PRN #32 tab 01/04/22 [Rx] Sennosides [Senokot] 2 tab PO DAILY PRN #60 tablet 01/04/22 [Rx] Follow up Appointment(s)/Referral(s): [facility] [NON-STAFF] - 1-2 Days Eugene Stewart DO [Doctor of Osteopathic Medicine] - 2 Weeks Activity/Diet/Wound Care/Special Instructions: Weightbearing as tolerated with a walker. CPM 5-6h daily as tolerated. Leave dressing intact. Dressing may be removed by home care nurse or by patient in 7 days. Then change dressing twice daily until follow up. May shower with initial dressing intact and after removal. If dressing become saturated, please remove. Recommend use of compression stockings daily until follow up to help prevent swelling and blood clots. May remove at night before sleeping. Please take aspirin 325mg twice daily for 30 days to prevent blood clots. Please follow up with [facility] and call with any questions or concerns, . Discharge Disposition: HOME WITH HOME HEALTH SERVICES
[2022-01-05 08:47] LABS: HCT 35.5 % (39.6-50.0); HGB 11.4 g/dL (13.0-17.0); MCH 31.9 pg (27.0-32.0); MCHC 32.1 g/dL (32.0-37.0); MCV 99.4 fL (80.0-97.0); Mean Platelet Volume 11.2 fL (9.5-12.2); NRBC Per 100 WBC 0 /100 WBCS (0.0-0.0); Platelet Count 260 X 10*3/uL (140-440); RBC 3.57 X 10*6/uL (4.40-5.60); RDW 13.1 % (11.5-14.5); WBC 15.11 X 10*3/uL (4.50-10.00)
[2022-01-05] MEDS ORDERED: MULTIVITAMINS, THERA 1 EACH TAB PO SCH (09:00)
[2022-01-05] MEDS ORDERED: PANTOPRAZOLE 40 MG TABLET PO SCH (09:00)
[2022-01-05] MEDS ORDERED: lisinopriL 20 MG TAB PO SCH (09:00)
[2022-01-05] MEDS ORDERED: CHOLECALCIFEROL 25 MCG (1000 IU) TABLET PO SCH ×2 (09:00)
[2022-01-05 09:03] LABS: African American GFR (CKD) 87.4 (60.0-200.0); Anion Gap 7.1 mmol/L (10.00-18.00); BUN/Creat Ratio 14.4 Ratio (12.00-20.00); Blood Urea Nitrogen 14.4 mg/dL (9.0-27.0); Calcium 8.8 mg/dL (8.7-10.3); Carbon Dioxide 28.9 mmol/L (20.0-27.5); Non-African American GFR(CKD) 75.4 (60.0-200.0); Potassium 4.4 mmol/L (3.5-5.5)
[2022-01-05] MEDS: IPRATROPIUM 0.5 MG/2.5 ML NEBU INHALATION SCH ×2 (09:10→11:58)
[2022-01-05] MEDS: SYMBICORT 80-4.5 MCG INHALER INHALATION SCH (09:10)
[2022-01-05 09:13] VITALS: RESP 18
[2022-01-05 09:15] LABS: Basophils # (A) 0.02 X 10*3/uL (0.00-0.10); Basophils % (A) 0.1 %; Eosinophils # (A) 0.03 X 10*3/uL (0.04-0.35); Eosinophils % (A) 0.2 %; Immature Grans, Automated 0.5 %; Lymphocytes # (A) 1.62 X 10*3/uL (0.90-5.00); Lymphocytes % (A) 10.7 %; Monocytes # (A) 1.52 X 10*3/uL (0.20-1.00); Monocytes % (A) 10.1 %; Neutrophils # (A) 11.84 X 10*3/uL (1.80-7.70); Neutrophils % (A) 78.4 %
--- NOTE | 2022-01-05 09:46 | P.PN ---
Progress Note - Text Progress Note Date: 01/05/22 patient was seen and evaluated at bedside. Status post postoperative day 1 for right sidetotal knee arthroplasty patient had adductor canal catheter for postop pain control. Patient rated pain at rest 3 out of 10 in severity. Patient describes pain is aching, throbbing type on the sides of the knee and back of the knee. Patient started walking with support. With activity patient pain levels are 4-5 out of 10 in severity. With the help of oral pain medications pain levels are tolerable. Patient denied any weakness/ numbness in lower extremities. patient denied any fever, pain over the catheter site. Physical exam: Patient vital signs stable Patient is alert awake oriented 3 responding to all questions appropriately Examination of the catheter site showed dressing intact, no leaking fluid around the catheter, no redness, no tenderness over the catheter insertion area. plan: status post postoperative day 1 for right side total knee arthroplasty with adductor canal catheter for pain control. Patient was discussed to continue the medication at the rate of 8 mL per hour until the pump is completely empty and instructed the patient how to discontinue the catheter.
[2022-01-05 12:11] VITALS: PULSE 90
== END 2022-01-05 14:00 | disposition home health service (06) ==
LOC: OR 05:57 → 4SSUR 09:10 → OR 01-05 14:00
PROVIDERS: ATTEND Orthopaedic Surgery
DX: M17.11 Unilateral primary osteoarthritis, right knee (principal); G89.18 Other acute postprocedural pain
CPT/HCPCS: 94660 ×2; 94640 ×4; 94760; 97116; 97161; 64999; 64448; 76942; 80048; 85025; 88300; 73560; 27447; C1713; C1776; J2250; J0690 ×3; J2405; J2795; J1170

== ENCOUNTER → 2022-04-26 | Outpatient (CLI) | payer MEDICARE ==
[2022-04-26 11:51] LABS: INR 0.9 (<1.2); Partial Thromboplastin Time 25.7 sec (22.0-30.0); Prothrombin Time 9.6 sec (9.0-12.0)
[2022-04-26 15:15] LABS: HCT 42.3 % (39.6-50.0); HGB 12.8 g/dL (13.0-17.0); MCH 29.1 pg (27.0-32.0); MCHC 30.3 g/dL (32.0-37.0); MCV 96.1 fL (80.0-97.0); Mean Platelet Volume 11.2 fL (9.5-12.2); NRBC Per 100 WBC 0 /100 WBCS (0.0-0.0); Platelet Count 288 X 10*3/uL (140-440); RDW 14.4 % (11.5-14.5); WBC 9.26 X 10*3/uL (4.50-10.00)
[2022-04-26 15:46] LABS: African American GFR (CKD) 99.2 (60.0-200.0); Albumin 4.3 g/dL (3.8-4.9); Albumin/Globulin Ratio 1.59 (1.60-3.17); Anion Gap 11.6 mmol/L (10.00-18.00); BUN/Creat Ratio 12.67 Ratio (12.00-20.00); Blood Urea Nitrogen 11.4 mg/dL (9.0-27.0); Calcium 9.4 mg/dL (8.7-10.3); Carbon Dioxide 28.4 mmol/L (20.0-27.5); Globulin 2.7 g/dL (1.6-3.3); Non-African American GFR(CKD) 85.6 (60.0-200.0); Potassium 4.6 mmol/L (3.5-5.5); Total Bilirubin 0.3 mg/dL (0.30-1.20)
[2022-04-26 20:03] LABS: Appearance,Urine Clear (Clear); Bilirubin,Urine Negative (Negative); Blood,Urine Trace (Negative); Color,Urine Yellow (Yellow); Ketones,Urine Negative (Negative); Nitrite,Urine Negative (Negative); PH, Urine 6.5 (5.0-8.0); Specific Gravity,Urine 1.016 (1.001-1.030); Urobilinogen,Urine 0.2 (0.2,1.0)
[2022-04-26 20:11] LABS: Bacteria,Urine None Seen /HPF (None Seen)
== END | disposition home or self-care (01) ==
LOC: LABPAT 09:20
PROVIDERS: ATTEND Orthopaedic Surgery
DX: Z01.812 Encounter for preprocedural laboratory examination (principal); M17.12 Unilateral primary osteoarthritis, left knee
CPT/HCPCS: 80053; 81001; 85027; 85610; 85730; 87070

== ENCOUNTER → 2022-08-04 | Day surgery (SDC) | payer MEDICARE ==
[~2022-08-04] MED LIST changes: -ACETAMINOPHEN TAB 500 MG TAB PO PRN; -GABAPENTIN 300 MG CAP PO PRN; +LACTATED RINGERS 1,000 ML IV SCH; -MELOXICAM 7.5 MG TAB PO PRN; +PROPOFOL 10 MG/ML 20 ML VIAL IV ONE; -TRANEXAMIC ACID IN NACL,ISO-OS 1,000 MG in SALINE 1 100ML.BAG IVPB PRN; -ceFAZolin 3 GM in SODIUM CHLORIDE 0.9% 100 ML IVPB PRN
[2022-08-04 07:25] VITALS: TEMP 97.8
--- NOTE | 2022-08-04 07:34 | P.GSHP ---
History of Present Illness H&P Date: 08/04/22 CHIEF COMPLAINT: Colon screen HISTORY OF PRESENT ILLNESS: The patient is a 71-year-old male who presents for colon screen. Lower endoscopy was offered for further evaluation and management. PAST MEDICAL HISTORY: Please see list. PAST SURGICAL HISTORY: Please see list. MEDICATIONS: Please see list. ALLERGIES: Please see list. SOCIAL HISTORY: No illicit drug use FAMILY HISTORY: No reports of Crohn disease or ulcerative colitis. REVIEW OF ORGAN SYSTEMS: CONSTITUTIONAL: No reports of fevers or chills. PHYSICAL EXAM: VITAL SIGNS: Stable GENERAL: Well-developed pleasant in no acute distress. HEENT: No scleral icterus. Extraocular movements grossly intact. Moist buccal mucosa. NECK: Supple without lymphadenopathy. CHEST: Unlabored respirations. Equal bilateral excursions. CARDIOVASCULAR: Regular rate and rhythm. Distal 2+ pulses. ABDOMEN: Soft, nontender, nondistended. MUSCULOSKELETAL: No clubbing, cyanosis, or edema. ASSESSMENT: 1. Colon screen. PLAN: 1. Recommend proceeding with a lower endoscopy Past Medical History Past Medical History: COPD, GERD/Reflux, Hearing Disorder / Deafness, Hypertension, Osteoarthritis (OA), Sleep Apnea/CPAP/BIPAP Additional Past Medical History / Comment(s): uses cpap,hiatal hernia,[place], GOUT, sinus issues, hx. colon polyps History of Any Multi-Drug Resistant Organisms: None Reported Past Surgical History: Joint Replacement Additional Past Surgical History / Comment(s): colonoscopies,kidney stones removal,drained cyst on liver with another surgery later for removal of CYST ON liver -LAPAROSCOPIC, yamil knees replaced Past Anesthesia/Blood Transfusion Reactions: Motion Sickness Additional Past Anesthesia/Blood Transfusion Reaction / Comment(s): no hx blood transfusion Smoking Status: Former smoker - Past Family History Mother Family Medical History: No Reported History Father Family Medical History: Cancer Sister(s) Family Medical History: Cancer Additional Family Medical History / Comment(s): breast,lymphatic Brother(s) Family Medical History: Cancer Additional Family Medical History / Comment(s): pancreatic,nonhodgkin's lymphoma Medications and Allergies Home Medications Medication Instructions Recorded Confirmed Type Cholecalciferol (Vitamin D3) 1,000 unit PO DAILY 09/26/19 07/30/22 History [Vitamin D3] Fluticasone/Umeclidin/Vilanter 1 inhalation INHALATION HS 09/26/19 07/30/22 History [Trelegy Ellipta 100-62.5-25] Multivit-Min/Folic/Vit K/Lycop 1 each PO DAILY 09/26/19 07/30/22 History [Men's Multivitamin Tablet] Omeprazole 20 mg PO DAILY 09/26/19 07/30/22 History allopurinoL [Zyloprim] 100 mg PO HS 09/26/19 07/30/22 History lisinopriL 20 mg PO DAILY 09/26/19 07/30/22 History Super Food Green 2 tab PO DAILY 06/15/21 07/30/22 History hydroCHLOROthiazide [Hydrodiuril] 25 mg PO DAILY 06/15/21 07/30/22 History Albuterol Inhaler [Ventolin Hfa 1 - 2 puff INHALATION Q6H PRN 07/30/22 07/30/22 History Inhaler] Cannabidiol (Cbd) [Epidiolex] 0 mg PO DIRECTED PRN 07/30/22 07/30/22 History HYDROcodone/APAP 7.5-325MG [[place] 1 tab PO Q6HR PRN 07/30/22 07/30/22 History 7.5-325] traZODone HCL [Desyrel] 50 mg PO HS 07/30/22 07/30/22 History Allergies Allergy/AdvReac Type Severity Reaction Status Date / Time No Known Allergies Allergy Verified 07/30/22 09:44 Surgical - Exam Vital Signs Temp Pulse Resp BP Pulse Ox 97.8 F 95 16 138/72 97 08/04/22 07:24 08/04/22 07:24 08/04/22 07:24 08/04/22 07:24 08/04/22 07:24
--- NOTE | 2022-08-04 08:02 | P.PCN ---
Date of Procedure: 08/04/22 Description of Procedure: PREOPERATIVE DIAGNOSIS: Personal history colon polyp Colonoscopy screening. POSTOPERATIVE DIAGNOSIS: Colonoscopy screening. Diverticulosis, scattered. Tubular adenoma ascending colon, unable to retrieve OPERATION: Colonoscopy to the ascending colon SURGEON: Wendie Rubio MD. ANESTHESIA: MAC. INDICATIONS: The patient is a 71-year-old male who presents for colonoscopy screening. Last colonoscopy 5 years. Benefits and risks were described and informed consent was obtained. DESCRIPTION OF PROCEDURE: The patient had undergone Sutab prep. The patient had been brought into the operating room and laid in the left lateral decubitus position. After adequate intravenous sedation, the rectum was examined with 2% lidocaine jelly. No external hemorrhoids were encountered. The rectal tone was within normal limits. No lesions were palpated in the rectal vault. An Olympus colonoscope was advanced through a highly redundant sigmoid colon. The abdominal wall pressure was needed to advance the scope. The scope was advanced to the hub however unable to get to the cecum. The prep was excellent. Scattered diverticulosis was encountered. Tubular adenoma, 4 mm was found along the proximal ascending colon however unable to obtain due to length of scope. No evidence of focal colitis was found. Retroflexion of the scope demonstrated grade 1 internal hemorrhoids without active bleeding or inflammation. The colon was desufflated. The patient had tolerated the procedure well. Withdrawal time was over 6 minutes. FINDINGS: Aronchick preparation quality scale 1 (1-5) Internal hemorrhoids, grade 1 No external prolapsed hemorrhoids. No arteriovenous malformations. Tubular adenoma, ascending, 4 mm unable to obtain due to had a redundant colon No focal colitis. Scope advanced ascending colon, ileocecal valve not seen RECOMMENDATIONS: 1. Recommend barium enema for the cecum, ileocecal valve assessment and risk of colon polyp 2. Presence of diverticulosis with redundant sigmoid colon and may benefit from surgical resection in presence of diverticulitis 3. Repeat colonoscopy in one year, 2023 Plan - Discharge Summary Discharge Rx Participant: No New Discharge Prescriptions: Continue Omeprazole 20 mg PO DAILY lisinopriL 20 mg PO DAILY allopurinoL [Zyloprim] 100 mg PO HS Cholecalciferol (Vitamin D3) [Vitamin D3] 1,000 unit PO DAILY Multivit-Min/Folic/Vit K/Lycop [Men's Multivitamin Tablet] 1 each PO DAILY Fluticasone/Umeclidin/Vilanter [Trelegy Ellipta 100-62.5-25] 1 inhalation INHALATION HS hydroCHLOROthiazide [Hydrodiuril] 25 mg PO DAILY HYDROcodone/APAP 7.5-325MG [[place] 7.5-325] 1 tab PO Q6HR PRN PRN Reason: Pain Albuterol Inhaler [Ventolin Hfa Inhaler] 1 - 2 puff INHALATION Q6H PRN PRN Reason: Shortness Of Breath Super Food Green 2 tab PO DAILY traZODone HCL [Desyrel] 50 mg PO HS Cannabidiol (Cbd) [Epidiolex] 0 mg PO DIRECTED PRN PRN Reason: Pain Discharge Medication List Cholecalciferol (Vitamin D3) [Vitamin D3] 1,000 unit PO DAILY 09/26/19 [History] Fluticasone/Umeclidin/Vilanter [Trelegy Ellipta 100-62.5-25] 1 inhalation INHALATION HS 09/26/19 [History] Multivit-Min/Folic/Vit K/Lycop [Men's Multivitamin Tablet] 1 each PO DAILY 09/26/19 [History] Omeprazole 20 mg PO DAILY 09/26/19 [History] allopurinoL [Zyloprim] 100 mg PO HS 09/26/19 [History] lisinopriL 20 mg PO DAILY 09/26/19 [History] Super Food Green 2 tab PO DAILY 06/15/21 [History] hydroCHLOROthiazide [Hydrodiuril] 25 mg PO DAILY 06/15/21 [History] Albuterol Inhaler [Ventolin Hfa Inhaler] 1 - 2 puff INHALATION Q6H PRN 07/30/22 [History] Cannabidiol (Cbd) [Epidiolex] 0 mg PO DIRECTED PRN 07/30/22 [History] HYDROcodone/APAP 7.5-325MG [[place] 7.5-325] 1 tab PO Q6HR PRN 07/30/22 [History] traZODone HCL [Desyrel] 50 mg PO HS 07/30/22 [History] Follow up Appointment(s)/Referral(s): Wendie Rubio MD [STAFF PHYSICIAN] - 08/17/22 2:00 pm Patient Instructions/Handouts: Diverticulosis Diet (GEN), Diverticulosis (GEN), Colorectal Polyps (GEN), Barium Enema (DC) Activity/Diet/Wound Care/Special Instructions: Repeat colonoscopy in one year, 2023 Discharge Disposition: HOME SELF-CARE
[2022-08-04 09:02] VITALS: RESP 20
[2022-08-04 09:55] VITALS: BP 115/67; PULSE 81
--- NOTE | 2022-08-04 13:05 | FL ---
EXAMINATION TYPE: FL barium enema w air contrast DATE OF EXAM: 08/04/2022 COMPARISON: None HISTORY: Possible sigmoid volvulus, abnormal colonoscopy TECHNIQUE: Double air contrast technique was utilized to evaluate the colon. Barium followed by air i s reflux in the colon. The ileocecal valve is felt to be visualized. The appendix and reflux into the terminal ileum during the examination however was unsuccessful. Appendix is identified on the postev acuation study. FINDINGS: There is redundancy of the colon. There are a few scattered diverticuli within the colon. N o persistent filling defects are evident. No circumferential area of narrowing is identified. There i s some irregularity within the superior border of the mid transverse colon. This may be transient how ever and midportion of the study appears to have normal distention through this region. There appears to be a normal postprocedure excretory response. IMPRESSION: 1. Minimal diverticulosis without evidence of acute diverticulitis.
== END | disposition home or self-care (01) ==
LOC: ORWHC2ENDO 06:55
PROVIDERS: ATTEND Surgery Plastic and Reconstructive Surgery
DX: Z12.11 Encounter for screening for malignant neoplasm of colon (principal); D12.2 Benign neoplasm of ascending colon; K63.89 Other specified diseases of intestine; K57.30 Diverticulosis of large intestine without perforation or abscess without bleeding; K64.0 First degree hemorrhoids; I10 Essential (primary) hypertension; J44.9 Chronic obstructive pulmonary disease, unspecified; G47.33 Obstructive sleep apnea (adult) (pediatric); Z99.89 Dependence on other enabling machines and devices; F12.90 Cannabis use, unspecified, uncomplicated; K44.9 Diaphragmatic hernia without obstruction or gangrene; K21.9 Gastro-esophageal reflux disease without esophagitis; Z79.899 Other long term (current) drug therapy; M10.9 Gout, unspecified; M19.90 Unspecified osteoarthritis, unspecified site; Z87.891 Personal history of nicotine dependence; H91.90 Unspecified hearing loss, unspecified ear; Z98.890 Other specified postprocedural states; Z79.51 Long term (current) use of inhaled steroids
CPT/HCPCS: 74280; J2704; G0121; 45378

== ENCOUNTER → 2022-09-22 | Outpatient (CLI) | payer MEDICARE ==
[2022-09-22 15:59] LABS: HCT 42.4 % (39.6-50.0); MCH 30.8 pg (27.0-32.0); MCV 93.2 FL (80.0-97.0); Mean Platelet Volume 10.9 FL (9.5-12.2); NRBC Per 100 WBC 0 X 10*3/uL (0.00-0.01); Platelet Count 292 X 10*3/uL (140-440); RBC 4.55 X 10*6/uL (4.40-5.60); WBC 10.14 X 10*3/uL (4.50-10.00)
[2022-09-22 16:30] LABS: Potassium 4.7 mmol/L (3.5-5.5)
== END | disposition home or self-care (01) ==
LOC: LABPAT 08:54
PROVIDERS: ATTEND Surgery Plastic and Reconstructive Surgery
DX: Z01.812 Encounter for preprocedural laboratory examination (principal); K57.32 Diverticulitis of large intestine without perforation or abscess without bleeding
CPT/HCPCS: 80051; 85027

== ENCOUNTER 2022-09-24 12:20 | Inpatient (IN) | payer MEDICARE ==
--- NOTE | 2022-09-24 07:01 | P.GSHP ---
History of Present Illness H&P Date: 09/24/22 CHIEF COMPLAINT: Sigmoid diverticulosis possible obstruction HISTORY OF PRESENT ILLNESS: The patient is a 71-year-old male who presents with change in bowel habits including intermittent large bowel obstruction for over 6 months. He reports intermittent gas bloat. He had attempted prior colonoscopy unsuccessful. He presents for surgical options, sigmoid colectomy. PAST MEDICAL HISTORY: Please see list. PAST SURGICAL HISTORY: Please see list. MEDICATIONS: Please see list. ALLERGIES: Please see list. SOCIAL HISTORY: No illicit drug use FAMILY HISTORY: No reports of Crohn disease or ulcerative colitis. REVIEW OF ORGAN SYSTEMS: CONSTITUTIONAL: Denies any fever or chills. HEENT: Denies any trouble with vision or nosebleeds. No difficulty swallowing. LYMPHATIC: The patient denies any lumps and bumps around the neck. ENDOCRINE: Denies any thyroid disorders. Has blood sugar glucose intolerance. RESPIRATORY: Denies pneumonia. Denies any troubles with breathing or dyspnea on exertion. CARDIOVASCULAR: Denies any chest pain, palpitations, or recent heart attacks. GASTROINTESTINAL: Has chronic diverticulitis. GENITOURINARY: Has increased urinary frequency. MUSCULOSKELETAL: Has back pain, stiffness, joint arthritis. NEUROLOGIC: Denies any numbness or tingling along the distal extremities. No seizure disorders or headaches. PSYCHIATRIC: Denies depression or suidical ideation. HEMATOLOGIC: Denies any abnormal bleeding or bruising. PHYSICAL EXAM: VITAL SIGNS: Stable GENERAL: Well-developed pleasant in no acute distress. HEENT: No scleral icterus. Extraocular movements grossly intact. Moist buccal mucosa. NECK: Supple without lymphadenopathy. CHEST: Unlabored respirations. Equal bilateral excursions. CARDIOVASCULAR: Regular rate and rhythm. Distal 2+ pulses. ABDOMEN: Soft, nontender, nondistended. MUSCULOSKELETAL: No clubbing, cyanosis, or edema. NERUO: Cranial nerves 2-12 grossly intact. PSYCH: Alert and oriented to person place and time. ASSESSMENT: 1. Sigmoid diverticulosis with intermittent bowel obstruction PLAN: 1. Benefits and risks of surgical robotic sigmoid resection was reviewed in detail. Robotic-assisted approach was also described. 2. Enhanced colon recovery program. 3. DVT prophylaxis. 4. Antibiotic prophylaxis. 5. Inpatient hospitalization greater than 2 nights. 6. Recommend colonoscopy for extent of obstruction and evaluation of neoplasm. Past Medical History Past Medical History: COPD, GERD/Reflux, Hearing Disorder / Deafness, Hypertension, Osteoarthritis (OA), Sleep Apnea/CPAP/BIPAP Additional Past Medical History / Comment(s): Uses cpap, [place], GOUT, sinus issues, hiatal hernia, colon polyps, diverticulitis/tortuos long colon History of Any Multi-Drug Resistant Organisms: None Reported Past Surgical History: Joint Replacement Additional Past Surgical History / Comment(s): colonoscopies,kidney stones removal,drained cyst on liver then another surgery on liver cyst, yamil knees replaced Past Anesthesia/Blood Transfusion Reactions: Motion Sickness, Postoperative Nausea & Vomiting (PONV) Additional Past Anesthesia/Blood Transfusion Reaction / Comment(s): no hx blood transfusion Smoking Status: Former smoker - Past Family History Mother Family Medical History: No Reported History Father Family Medical History: Cancer Sister(s) Family Medical History: Cancer Additional Family Medical History / Comment(s): breast,lymphatic Brother(s) Family Medical History: Cancer Additional Family Medical History / Comment(s): pancreatic,nonhodgkin's lymphoma Medications and Allergies Home Medications Medication Instructions Recorded Confirmed Type Cholecalciferol (Vitamin D3) 1,000 unit PO QAM 09/26/19 09/21/22 History [Vitamin D3] Fluticasone/Umeclidin/Vilanter 1 inhalation INHALATION 09/26/19 09/21/22 History [Trelegy Ellipta 100-62.5-25] Multivit-Min/Folic/Vit K/Lycop 1 each PO QAM 09/26/19 09/21/22 History [Men's Multivitamin Tablet] Omeprazole 20 mg PO QAM 09/26/19 09/21/22 History allopurinoL [Zyloprim] 100 mg PO HS 09/26/19 09/21/22 History lisinopriL 20 mg PO QAM 09/26/19 09/21/22 History Super Food Green 2 tab PO BID 06/15/21 09/21/22 History hydroCHLOROthiazide [Hydrodiuril] 25 mg PO QAM 06/15/21 09/21/22 History Albuterol Inhaler [Ventolin Hfa 1 - 2 puff INHALATION Q6H PRN 07/30/22 09/21/22 History Inhaler] Cannabidiol (Cbd) [Epidiolex] 0 mg PO BID 07/30/22 09/21/22 History traZODone HCL [Desyrel] 50 mg PO HS 07/30/22 09/21/22 History Super Beta Prostate 1 tab PO BID 09/21/22 09/21/22 History Allergies Allergy/AdvReac Type Severity Reaction Status Date / Time No Known Allergies Allergy Verified 09/21/22 11:27
[~2022-09-24 12:20] MED LIST changes: +ACETAMINOPHEN TAB 500 MG TAB PO PRN; +ALVIMOPAN 12 MG CAPSULE PO PRN; +HEPARIN SODIUM,PORCINE/PF 5,000 UNIT/0.5 ML SYRINGE SQ PRN; -LACTATED RINGERS 1,000 ML IV SCH; +ONDANSETRON 4 MG/2 ML VIAL IVP PRN; -PROPOFOL 10 MG/ML 20 ML VIAL IV ONE; +ceFAZolin 3 GM in SODIUM CHLORIDE 0.9% 100 ML IVPB PRN; +metroNIDAZOLE-NS PMX 500 MG in SALINE 1 100ML.BAG IVPB PRN
[2022-09-24] MEDS ORDERED: MIDAZOLAM 2 MG/2 ML VIAL IV PRN (12:39)
[2022-09-24] MEDS ORDERED: DEXAMETHASONE SOD PHOSPHATE 4 MG/ML 1 ML VIAL IVP ONE (13:21)
[2022-09-24] MEDS: LACTATED RINGERS 1,000 ML IV SCH (13:21)
[2022-09-24] MEDS ORDERED: MIDAZOLAM 2 MG/2 ML VIAL IVP ONE (13:35)
[2022-09-24] MEDS ORDERED: fentaNYL (PF) 50 MCG/1 ML VIAL IVP ONE (13:36)
--- NOTE | 2022-09-24 13:41 | P.ANPRN ---
Procedure Note - Anesthesia - Nerve Block Performed Bilateral Transversus Abdominis Single Time Out Performed: Yes Date of Procedure: 09/24/22 Procedure Start Time: 13:35 Procedure Stop Time: 13:39 Location of Patient: PreOp Indication: Acute Post-Operative Pain, Requested by Surgeon Sedation Type: Sedate with meaningful contact maintained Preparation: Sterile Prep Position: Supine Needle Types: Pajunk Needle Gauge: 21 Ultrasound used to visualize needle placement: Yes Ultrasound used to observe medication spread: Yes Injectate: Other (see comment) (0.25% Ropivicaine 20 ml left, 20 ml right) Blood Aspirated: No Pain Paresthesia on Injection Noted: No Resistance on Injection: Normal Image Stored and Saved: Yes Events: Uneventful and Well Tolerated
[2022-09-24] MEDS ORDERED: PROPOFOL 10 MG/ML 20 ML VIAL IV ONE (13:51)
[2022-09-24] MEDS ORDERED: GLYCOPYRROLATE 0.2 MG/ML 2 ML VIAL ONE (13:51)
[2022-09-24] MEDS ORDERED: HYDROmorphone (PF) 1 MG/ML ONE (13:51)
[2022-09-24] MEDS ORDERED: ROCURONIUM 10 MG/ML (5 ML VIAL) IV ONE (13:51)
[2022-09-24] MEDS ORDERED: SUCCINYLCHOLINE CHLORIDE 200 MG/10 ML VIAL IV ONE (13:51)
[2022-09-24] MEDS ORDERED: fentaNYL (PF) 50 MCG/ML 2 ML AMP ONE (13:51)
[2022-09-24] MEDS ORDERED: SODIUM CHLORIDE 0.9% (PF) 10 ML VIAL ONE (13:51)
[2022-09-24] MEDS ORDERED: ROPIVACAINE 5 MG/ML 30 ML VIAL ONE (13:51)
[2022-09-24] MEDS ORDERED: PHENYLEPHRINE-0.9% NACL SYG 1,000 MCG/10 ML SYRINGE ONE (13:51)
[2022-09-24] MEDS ORDERED: NEOSTIGMINE 1 MG/ML 10 ML VIAL ONE (13:51)
[2022-09-24] MEDS ORDERED: FUROSEMIDE 10 MG/ML 2 ML VIAL ONE (13:51)
[2022-09-24] MEDS ORDERED: LIDOCAINE 2% INJ 20 MG/ML (2 ML VIAL) ONE (13:51)
[2022-09-24] MEDS ORDERED: MIDAZOLAM 2 MG/2 ML VIAL ONE (13:51)
[2022-09-24] MEDS ORDERED: BUPIVACAINE (PF) 0.25% 30 ML VIAL SQ ONE ×2 (14:42→14:49)
[2022-09-24] MEDS: HYDROmorphone 0.5 MG/0.5 ML SYRINGE IVP PRN ×2 (18:05→18:14)
[2022-09-24] MEDS ORDERED: METOCLOPRAMIDE 5 MG/ML 2 ML VIAL IVP PRN (18:30)
[2022-09-24] MEDS ORDERED: BENZOCAINE/MENTHOL LOZENG 1 EACH LOZENGE MUCOUS MEM PRN (18:30)
[2022-09-24] MEDS ORDERED: HYDROmorphone 1 MG/ML 1 ML SYRINGE IVP PRN (18:30)
[2022-09-24] MEDS ORDERED: NALOXONE 0.4 MG/ML 1 ML VIAL IV PRN (18:34)
--- NOTE | 2022-09-24 18:44 | P.OP ---
Date of Procedure: 09/24/22 Description of Procedure: SURGEON: JENNIFER KLEIN MD PREOPERATIVE DIAGNOSES: 1. Sigmoid diverticulitis 2. Hypertensive heart disease 3. Morbid obesity due to excess calories, BMI 41.5 4. Gout 5. Gastroesophageal reflux disease 6. Chronic obstructive pulmonary disease 7. Hearing impairment 8. Obstructive sleep apnea 9. History of liver sepsis 10. History of bilateral knee replacement 11. Preoperative leukocytosis 12. Postoperative nausea or vomiting 13. Former tobacco user 14. Obstructive uropathy POSTOPERATIVE DIAGNOSES: 1. Sigmoid diverticulitis 2. Hypertensive heart disease 3. Morbid obesity due to excess calories, BMI 41.5 4. Gout 5. Gastroesophageal reflux disease 6. Chronic obstructive pulmonary disease 7. Hearing impairment 8. Obstructive sleep apnea 9. History of liver sepsis 10. History of bilateral knee replacement 11. Preoperative leukocytosis 12. Postoperative nausea or vomiting 13. Former tobacco user 14. Descending colon adenoma 15. Bilateral indirect inguinal hernia OPERATION: 1. Robotic-assisted daVinci Xi sigmoid colectomy with low anterior resection using 29 mm Ethicon powered stapler 2. Intraoperative colonoscopy used for sigmoidoscopy Anesthesia: GETA, local, regional Estimated Blood Loss (ml): 75 Pathology: 1. Sigmoid colon 2. Proximal colotomy Condition: stable Disposition: floor COMPLICATIONS: None. Operative Findings: 1. Redundant sigmoid colon 2. Anastomosis with EEA stapler 29 mm 3. No tension or torsion along the anastomosis 4. Doughnuts thick on the rectal side, thin on descending colon side with intact anastomosis 5. Moderately redundant sigmoid colon without tension at anastomosis 6. Negative leak test with viable anastomosis. 7. Descending colon adenoma 8. Extremely narrow pelvis 9. Moderately dense fatty intra-abdominal tissue including paracolic fat 10. Bilateral indirect inguinal hernia 11. Obstructive uropathy with use of coud catheter for placement of Graham catheter. INDICATIONS: The patient is a 71-year-old male who presents with change in bowel habits, sigmoid diverticulosis with tortuous colon. He had prior to the colonoscopy however unsuccessful due to sigmoid colon redundancy. Benefits and risks of surgical intervention was described in detail including infection, in jury to the ureter, colostomy creation, possibility for additional surgery was discussed at length. Informed consent was obtained. All questions of the patient and family were answered. DESCRIPTION: Earlier the patient had undergone a bowel prep using the enhanced colon recovery program. The patient was transferred to the operating room and placed supine. After general induction, the abdomen was prepped and draped in standard sterile fashion. [place]an was placed along the abdomen to minimize any contamination of skin floor. A Graham catheter was placed using coud due to prostate obstruction. After a timeout protocol was performed, attention was then brought to the left upper quadrant whereby a 0 degree 5 mm laparoscopic trocar entry was performed. The abdominal cavity was entered and insufflated to 15 mmHg pressure, which was tolerated well. Diagnostic laparoscopy confirmed moderately redundant sigmoid colon with dense paracolic fat. Bilateral inguinal hernia, indirect. No large recurrent liver cyst identified. Next a robotic 12-mm trocar was placed along the right lateral abdominal wall 20 cm superior from the pelvis. Two 8 mm ports were placed along the upper abdomen. Ports were placed 10 cm apart from each other including 20 cm away from the target anatomy of the left pelvis. The 12-mm port was exchanged for an 8 mm robotic port at the left upper quadrant. The robot was docked along the left lateral abdomen. The patient was positioned in steep Trendelenburg position at 21-degrees. Using atraumatic graspers and vessel sealer, the robotic system was docked and primed as described. Instruments were interchanged by the sales assistant displays including hook cautery, needle pile driver engineer, robotic stapler and vessel sealer. The robot stapler was prepared along the right lateral abdominal wall. The stapler 12-mm port was arranged along the right lateral abdominal wall. Next, attention was brought to identify the sigmoid colon. A stay suture using 3- 0 silk was placed along the anterior serosa of the redundant sigmoid colon. The sigmoid mesentery was mobilized using a vessel sealer whereby the descending colon was marked and tagged. Using multiple fires of the robot stapler 60 mm black load, the proximal sigmoid colon was divided. The mesentery of the sigmoid colon was mobilized towards the pelvic brim and sacral promontory using a vessel sealer. The sigmoid volvulus was reduced with viable colon. Next, the sigmoid colon was divided using the robotic stapler 60 mm black staple loads. The rest of the sigmoid colon mesentery was mobilized using vessel sealer. Additionally, the sigmoid colon was mobilized onto the colon to minimize injury to the ureters. I went to the foot of the bed to confirm sizers and placement of 29-mm Ethicon powered stapler. I re-scrubbed into the case. The robotic arms were temporarily undocked. A 29-mm anvil was placed with a 3-0 silk sutured at the tip of the anvil fibreglass lay up worker. Then the anvil was placed via the left upper quadrant 12 mm port. All robotic arms were re-docked. I went back to the console. The staple line was opened using cautery. The anvil was entered into the proximal descending colon. The colotomy was closed using 60 mm green load. Next, the sharp tip of the anvil fibreglass lay up worker was brought through the staple line. The anvil fibreglass lay up worker was removed from the abdomen using empty clip appliers. I went to the foot of the bed to place the powered Ethicon 29 mm stapler via the rectum. The anvil and stapler were mated for 1 minute. The doughnuts were intact. An intraoperative leak test was performed as I inserted the colonoscope to the anastomosis. Endoscopic images were obtained. Irrigation was placed in the pelvis and no air leaks were identified. Irrigation fluid was aspirated from the pelvis until dry. I went back to the console. All sponges and needles were removed from the abdominal cavity. The robot was undocked. I re-scrubbed into the case. Via the left upper quadrant port, the sigmoid colon was removed. All sponges were removed from the abdominal cavity. The left upper quadrant incision was widened to 3-cm. No contamination had occurred throughout the case. The fascial defect was oversewn using 0 Vicryl and a William Lockwood. Next all pneumoperitoneum was evacuated from the abdominal cavity. The 8-mm trocar sites were reapproximated using 4-0 Monocryl in an interrupted subcuticular fashion. Local anesthetic was infiltrated to all wounds for postop analgesia. All incisions were also cleansed with diluted hydrogen peroxide. An [email or web address] advance surgical dressing was placed over the colon extraction site. Liquid glue was applied to the rest of the skin incisions. The patient had tolerated the procedure well. The patient was extubated successfully. The patient was transferred to the postanesthesia care unit in stable condition. Intraoperative findings were described in detail to the patient's family.
[2022-09-24] MEDS ORDERED: ACETAMINOPHEN IV (For NPO) 1,000 MG in EMPTY BAG 1 BAG IVPB SCH (18:45)
[2022-09-24] MEDS ORDERED: SODIUM CHLORIDE 0.9% 1,000 ML IV ONE (19:31)
[2022-09-24] MEDS ORDERED: NON FORMULARY DRUG (Fluticasone/Umeclidin/Vilanter [Trelegy Ellipta 100-62.5-25] 1 EACH Bl INHALATION SCH (21:00)
[2022-09-24 21:46] LABS: African American GFR (CKD) 84 (>60 ml/min/1.73 sqM); Anion Gap 8 mmol/L; Blood Urea Nitrogen 19 mg/dL (9-20); Calcium 8.6 mg/dL (8.4-10.2); Carbon Dioxide 24 mmol/L (22-30); Chloride 104 mmol/L (98-107); Glucose 128 mg/dL (74-99); Non-African American GFR(CKD) 72 (>60 ml/min/1.73 sqM); Potassium 4.7 mmol/L (3.5-5.1); Sodium 136 mmol/L (137-145)
[2022-09-24] MEDS: TAMSULOSIN 0.4 MG CAP.ER.24H PO SCH (22:28)
[2022-09-24] MEDS: HEPARIN SODIUM,PORCINE/PF 5,000 UNIT/0.5 ML SYRINGE SQ SCH (22:28)
[2022-09-24] MEDS: allopurinoL 100 MG TAB PO SCH (22:28)
[2022-09-24] MEDS: traZODone HCL 50 MG TAB PO SCH (22:29)
[2022-09-24] MEDS: ALVIMOPAN 12 MG CAPSULE PO SCH (22:29)
[2022-09-24] MEDS: ACETAMINOPHEN IV (For NPO) 1,000 MG in EMPTY BAG 1 BAG IVPB SCH (22:30)
[2022-09-24] MEDS: fentaNYL PCA 500 MCG/50 ML BAG IV SCH (22:40)
[2022-09-25 01:52] LABS: Basophils # (A) 0.02 X 10*3/uL (0.00-0.10); Basophils % (A) 0.2 %; Eosinophils # (A) 0 X 10*3/uL (0.04-0.35); Eosinophils % (A) 0 %; HCT 40.2 % (39.6-50.0); HGB 13.2 d/dL (12.0-15.0); Lymphocytes # (A) 0.42 X 10*3/uL (0.90-5.00); Lymphocytes % (A) 3.2 %; MCHC 32.8 d/dL (32.0-37.0); MCV 94.4 FL (80.0-97.0); Mean Platelet Volume 10.8 FL (9.5-12.2); Monocytes % (A) 4.6 %; NRBC Per 100 WBC 0 X 10*3/uL (0.00-0.01); Neutrophils # (A) 11.98 X 10*3/uL (1.80-7.70); Neutrophils % (A) 91.6 %; Platelet Count 283 X 10*3/uL (140-440); RBC 4.26 X 10*6/uL (4.40-5.60); RDW 14.1 % (11.5-14.5); WBC 13.07 X 10*3/uL (4.50-10.00)
[2022-09-25] MEDS: ACETAMINOPHEN IV (For NPO) 1,000 MG in EMPTY BAG 1 BAG IVPB SCH ×3 (04:31→16:37)
[2022-09-25] MEDS: lisinopriL 20 MG TAB PO SCH (08:20)
[2022-09-25] MEDS: TAMSULOSIN 0.4 MG CAP.ER.24H PO SCH ×2 (08:20→20:02)
[2022-09-25] MEDS: PANTOPRAZOLE 40 MG TABLET PO SCH (08:20)
[2022-09-25] MEDS: hydroCHLOROthiazide 25 MG TAB PO SCH (08:20)
[2022-09-25] MEDS: ALVIMOPAN 12 MG CAPSULE PO SCH ×2 (08:20→20:02)
[2022-09-25] MEDS: HEPARIN SODIUM,PORCINE/PF 5,000 UNIT/0.5 ML SYRINGE SQ SCH ×2 (08:20→20:02)
[2022-09-25 08:24] LABS: African American GFR (CKD) 85 (>60 ml/min/1.73 sqM); Anion Gap 8 mmol/L; Blood Urea Nitrogen 20 mg/dL (9-20); Calcium 8.6 mg/dL (8.4-10.2); Carbon Dioxide 28 mmol/L (22-30); Chloride 101 mmol/L (98-107); Glucose 116 mg/dL (74-99); Non-African American GFR(CKD) 74 (>60 ml/min/1.73 sqM); Potassium 4.6 mmol/L (3.5-5.1); Sodium 137 mmol/L (137-145)
[2022-09-25 09:29] LABS: Basophils # (A) 0.01 X 10*3/uL (0.00-0.10); Basophils % (A) 0.1 %; Eosinophils # (A) 0 X 10*3/uL (0.04-0.35); Eosinophils % (A) 0 %; HCT 37.2 % (39.6-50.0); HGB 12.2 d/dL (12.0-15.0); Lymphocytes # (A) 1.09 X 10*3/uL (0.90-5.00); Lymphocytes % (A) 6.3 %; MCHC 32.8 d/dL (32.0-37.0); MCV 94.4 FL (80.0-97.0); Mean Platelet Volume 10.9 FL (9.5-12.2); Monocytes % (A) 6.4 %; NRBC Per 100 WBC 0 X 10*3/uL (0.00-0.01); Neutrophils # (A) 14.94 X 10*3/uL (1.80-7.70); Neutrophils % (A) 86.7 %; Platelet Count 258 X 10*3/uL (140-440); RBC 3.94 X 10*6/uL (4.40-5.60); RDW 14.2 % (11.5-14.5); WBC 17.22 X 10*3/uL (4.50-10.00)
--- NOTE | 2022-09-25 09:45 | P.PN ---
Subjective Progress Note Date: 09/25/22 Principal diagnosis: Status post sigmoid resection Patient doing well today. Complaining of mild soreness left upper quadrant at the largest incision site. Mildly tachycardic. Tolerating clears. No nausea or vomiting. No flatus. White blood cell count 17 Objective - Vital Signs Vital signs: Vital Signs Temp 98.5 F 09/25/22 07:56 Pulse 95 09/25/22 07:56 Resp 22 09/25/22 07:56 BP 114/64 09/25/22 07:56 Pulse Ox 96 09/25/22 08:50 FiO2 Intake & Output 09/24/22 09/25/22 09/25/22 18:59 06:59 18:59 Intake Total 3200 100 Output Total 475 200 Balance 2725 -100 Weight 138.7 kg 138.7 kg Intake: IV 3200 100 Output: Urine 400 200 Estimated Blood Loss 75 - Exam Abdomen: Soft, nondistended, incisions clean and dry, mild tenderness - Labs CBC & Chem 7: 09/25/22 06:52 09/25/22 06:52 Labs: Abnormal Lab Results - Last 24 Hours (Table) 09/24/22 09/24/22 09/25/22 Range/Units 20:57 20:57 06:52 WBC 13.07 H 17.22 H (4.50-10.00) X 10*3/uL RBC 4.26 L 3.94 L (4.40-5.60) X 10*6/uL Hct 37.2 L (39.6-50.0) % Neutrophils # 11.98 H 14.94 H (1.80-7.70) X 10*3/uL Lymphocytes # 0.42 L (0.90-5.00) X 10*3/uL Monocytes # 1.10 H (0.20-1.00) X 10*3/uL Eosinophils # 0 L 0 L (0.04-0.35) X 10*3/uL Sodium 136 L (137-145) mmol/L Glucose 128 H (74-99) mg/dL 09/25/22 Range/Units 06:52 WBC (4.50-10.00) X 10*3/uL RBC (4.40-5.60) X 10*6/uL Hct (39.6-50.0) % Neutrophils # (1.80-7.70) X 10*3/uL Lymphocytes # (0.90-5.00) X 10*3/uL Monocytes # (0.20-1.00) X 10*3/uL Eosinophils # (0.04-0.35) X 10*3/uL Sodium (137-145) mmol/L Glucose 116 H (74-99) mg/dL Assessment and Plan (1) Diverticulosis Narrative/Plan: Overall patient doing well. Diet is advanced. Ambulate. Graham catheter management per urology. Recheck labs tomorrow. Current Visit: Yes Status: Acute Code(s): K57.90 - DVRTCLOS OF INTEST, PART UNSP, W/O PERF OR ABSCESS W/O BLEED SNOMED Code(s): 340226235
[2022-09-25] MEDS: ONDANSETRON 4 MG/2 ML VIAL IVP PRN ×2 (11:11→12:05)
[2022-09-25] MEDS: IPRATROPIUM 0.5 MG/2.5 ML NEBU INHALATION SCH (12:36)
[2022-09-25] MEDS: SYMBICORT 80-4.5 MCG INHALER INHALATION SCH (12:36)
--- NOTE | 2022-09-25 13:59 | P.GSCN ---
History of Present Illness Consult date: 09/25/22 Reason for Consult: BPH, difficult catheter placement History of present illness: This is a 71-year-old male that underwent sigmoid resection on September [address] Rubio. Patient did require a Coude catheter Placement in the OR. At baseline he denies any voiding dysfunction, no previous history of urinary retention. He does have history of kidney stones which were treated surgically in the past. No previous history of recurrent UTIs gross hematuria. Graham catheter is in place draining clear yellow urine Review of Systems - Constitutional Denies fever, Denies weight loss - Cardiovascular Denies chest pain, Denies shortness of breath - Respiratory Denies cough, Denies 7 - Gastrointestinal Reports abdominal pain, Reports nausea, Reports vomiting - Genitourinary Denies dysuria, Denies flank pain Past Medical History Past Medical History: COPD, GERD/Reflux, Hearing Disorder / Deafness, Hypertension, Osteoarthritis (OA), Sleep Apnea/CPAP/BIPAP Additional Past Medical History / Comment(s): Uses cpap, [employer] [place], GOUT, sinus issues, hiatal hernia, colon polyps, diverticulitis/tortuos long colon History of Any Multi-Drug Resistant Organisms: None Reported Past Surgical History: Joint Replacement Additional Past Surgical History / Comment(s): colonoscopies,kidney stones removal,drained cyst on liver then another surgery on liver cyst, yamil knees replaced Past Anesthesia/Blood Transfusion Reactions: Motion Sickness, Postoperative Nausea & Vomiting (PONV) Additional Past Anesthesia/Blood Transfusion Reaction / Comm: no hx blood transfusion Smoking Status: Former smoker - Past Family History Mother Family Medical History: No Reported History Father Family Medical History: Cancer Sister(s) Family Medical History: Cancer Additional Family Medical History / Comment(s): breast,lymphatic Brother(s) Family Medical History: Cancer Additional Family Medical History / Comment(s): pancreatic,nonhodgkin's lymphoma Medications and Allergies Home Medications Medication Instructions Recorded Confirmed Type Cholecalciferol (Vitamin D3) 1,000 unit PO QAM 09/26/19 09/21/22 History [Vitamin D3] Fluticasone/Umeclidin/Vilanter 1 inhalation INHALATION HS 09/26/19 09/21/22 History [Trelegy Ellipta 100-62.5-25] Multivit-Min/Folic/Vit K/Lycop 1 each PO QAM 09/26/19 09/21/22 History [Men's Multivitamin Tablet] Omeprazole 20 mg PO QAM 09/26/19 09/21/22 History allopurinoL [Zyloprim] 100 mg PO HS 09/26/19 09/21/22 History lisinopriL 20 mg PO QAM 09/26/19 09/21/22 History Super Food Green 2 tab PO BID 06/15/21 09/21/22 History hydroCHLOROthiazide [Hydrodiuril] 25 mg PO QAM 06/15/21 09/21/22 History Albuterol Inhaler [Ventolin Hfa 1 - 2 puff INHALATION Q6H PRN 07/30/22 09/21/22 History Inhaler] Cannabidiol (Cbd) [Epidiolex] 0 mg PO BID 07/30/22 09/21/22 History traZODone HCL [Desyrel] 50 mg PO HS 07/30/22 09/21/22 History Super Beta Prostate 1 tab PO BID 09/21/22 09/21/22 History Acetaminophen Tab [Tylenol Tab] 1,000 mg PO Q6HR PRN #30 tablet 09/24/22 Rx Cyclobenzaprine [Flexeril] 10 mg PO TID #30 tab 09/24/22 Rx Ibuprofen [Motrin] 600 mg PO Q8HR PRN #30 tab 09/24/22 Rx Simethicone [Gas-X] 125 mg PO AC-TID PRN #20 capsule 09/24/22 Rx Allergies Allergy/AdvReac Type Severity Reaction Status Date / Time No Known Allergies Allergy Verified 09/24/22 12:51 Surgical - Exam Vital Signs Temp Pulse Resp Pulse Ox 97.7 F 102 H 20 95 09/24/22 12:54 09/24/22 12:54 09/24/22 12:54 09/24/22 12:54 - General no distress, no pain - Eyes normal ocular movement, no pale - ENT normal nares, normal mucosa - Respiratory normal expansion, normal respiratory effort - Abdomen Abdomen: soft, non tender - Psychiatric oriented to time, oriented to person, oriented to place Results - Labs 09/25/22 06:52 09/25/22 06:52 Abnormal Lab Results - Last 24 Hours (Table) 09/24/22 09/24/22 09/25/22 Range/Units 20:57 20:57 06:52 WBC 13.07 H 17.22 H (4.50-10.00) X 10*3/uL RBC 4.26 L 3.94 L (4.40-5.60) X 10*6/uL Hct 37.2 L (39.6-50.0) % Neutrophils # 11.98 H 14.94 H (1.80-7.70) X 10*3/uL Lymphocytes # 0.42 L (0.90-5.00) X 10*3/uL Monocytes # 1.10 H (0.20-1.00) X 10*3/uL Eosinophils # 0 L 0 L (0.04-0.35) X 10*3/uL Sodium 136 L (137-145) mmol/L Glucose 128 H (74-99) mg/dL 09/25/22 Range/Units 06:52 WBC (4.50-10.00) X 10*3/uL RBC (4.40-5.60) X 10*6/uL Hct (39.6-50.0) % Neutrophils # (1.80-7.70) X 10*3/uL Lymphocytes # (0.90-5.00) X 10*3/uL Monocytes # (0.20-1.00) X 10*3/uL Eosinophils # (0.04-0.35) X 10*3/uL Sodium (137-145) mmol/L Glucose 116 H (74-99) mg/dL Diabetes panel 09/24/22 09/25/22 Range/Units 20:57 06:52 Sodium 136 L 137 (137-145) mmol/L Potassium 4.7 4.6 (3.5-5.1) mmol/L Chloride 104 101 (98-107) mmol/L Carbon Dioxide 24 28 (22-30) mmol/L BUN 19 20 (9-20) mg/dL Creatinine 1.04 1.02 (0.66-1.25) mg/dL Glucose 128 H 116 H (74-99) mg/dL Calcium 8.6 8.6 (8.4-10.2) mg/dL Calcium panel 09/24/22 09/25/22 Range/Units 20:57 06:52 Calcium 8.6 8.6 (8.4-10.2) mg/dL Pituitary panel 09/24/22 09/25/22 Range/Units 20:57 06:52 Sodium 136 L 137 (137-145) mmol/L Potassium 4.7 4.6 (3.5-5.1) mmol/L Chloride 104 101 (98-107) mmol/L Carbon Dioxide 24 28 (22-30) mmol/L BUN 19 20 (9-20) mg/dL Creatinine 1.04 1.02 (0.66-1.25) mg/dL Glucose 128 H 116 H (74-99) mg/dL Calcium 8.6 8.6 (8.4-10.2) mg/dL Adrenal panel 09/24/22 09/25/22 Range/Units 20:57 06:52 Sodium 136 L 137 (137-145) mmol/L Potassium 4.7 4.6 (3.5-5.1) mmol/L Chloride 104 101 (98-107) mmol/L Carbon Dioxide 24 28 (22-30) mmol/L BUN 19 20 (9-20) mg/dL Creatinine 1.04 1.02 (0.66-1.25) mg/dL Glucose 128 H 116 H (74-99) mg/dL Calcium 8.6 8.6 (8.4-10.2) mg/dL Assessment and Plan Assessment: 71-year-old male history of BPH, acquired occluding catheter placement prior to surgery for sigmoid resection. No voiding dysfunction per patient -Graham can be removed prior to discharge
--- NOTE | 2022-09-25 15:05 | P.CONS ---
History of Present Illness - Reason for Consult Consult date: 09/25/22 Medical management - History of Present Illness History of present illness; Patient is a 71-year-old gentleman with past medical history significant for diverticulosis who presented to the hospital for elective sigmoid resection. Patient has been having altered bowel habits for the last 6 months, complaining of lot of abdominal bloating. Patient has undergone colonoscopy which was unsuccessful. Gen. surgery was following the patient outpatient and discussed the patient's options and he opted for surgical intervention which took place on 09/24. Medicine team were consulted postoperatively for medical management REVIEW OF SYSTEMS: CONSTITUTIONAL: No fever, no malaise, no fatigue. HEENT: No recent visual problems or hearing problems. Denied any sore throat. CARDIOVASCULAR: No chest pain, orthopnea, PND, no palpitations, no syncope. PULMONARY: No shortness of breath, no cough, no hemoptysis. GASTROINTESTINAL: No diarrhea, no nausea, no vomiting, no abdominal pain. NEUROLOGICAL: No headaches, no weakness, no numbness. HEMATOLOGICAL: Denies any bleeding or petechiae. GENITOURINARY: Denies any burning micturition, complaining of urinary retention MUSCULOSKELETAL/RHEUMATOLOGICAL: Denies any joint pain, swelling, or any muscle pain. ENDOCRINE: Denies any polyuria or polydipsia. The rest of the 14-point review of systems is negative. PHYSICAL EXAMINATION: GENERAL: The patient is alert and oriented x3, not in any acute distress. Well developed, well nourished. HEENT: Pupils are round and equally reacting to light. EOMI. No scleral icterus. No conjunctival pallor. Normocephalic, atraumatic. No pharyngeal erythema. No thyromegaly. CARDIOVASCULAR: S1 and S2 present. No murmurs, rubs, or gallops. PULMONARY: Chest is clear to auscultation, no wheezing or crackles. ABDOMEN: Soft, nontender, nondistended, normoactive bowel sounds. No palpable organomegaly. MUSCULOSKELETAL: No joint swelling or deformity. EXTREMITIES: No cyanosis, clubbing, or pedal edema. NEUROLOGICAL: Gross neurological examination did not reveal any focal deficits. SKIN: No rashes. Assessment and plan Sigmoid diverticulosis Urinary retention Hypertensive heart disease Morbid obesity due to excess calories, BMI 41.5 Gout Gastroesophageal reflux disease Chronic obstructive pulmonary disease Hearing impairment Obstructive sleep apnea History of bilateral knee replacement Former tobacco user Descending colon adenoma Bilateral indirect inguinal hernia Monitor vital signs Monitor CBC Monitor CMP Continue post op care per surgery Continue pain management per surgery Continue the prophylaxis per surgery Resume lisinopril and hydrochlorothiazide Continue home inhaler regimen Past Medical History Past Medical History: COPD, GERD/Reflux, Hearing Disorder / Deafness, Hypertension, Osteoarthritis (OA), Sleep Apnea/CPAP/BIPAP Additional Past Medical History / Comment(s): Uses cpap, [place], GOUT, sinus issues, hiatal hernia, colon polyps, diverticulitis/tortuos long colon History of Any Multi-Drug Resistant Organisms: None Reported Past Surgical History: Joint Replacement Additional Past Surgical History / Comment(s): colonoscopies,kidney stones removal,drained cyst on liver then another surgery on liver cyst, yamil knees replaced Past Anesthesia/Blood Transfusion Reactions: Motion Sickness, Postoperative Nausea & Vomiting (PONV) Additional Past Anesthesia/Blood Transfusion Reaction / Comm: no hx blood transfusion Smoking Status: Former smoker - Past Family History Mother Family Medical History: No Reported History Father Family Medical History: Cancer Sister(s) Family Medical History: Cancer Additional Family Medical History / Comment(s): breast,lymphatic Brother(s) Family Medical History: Cancer Additional Family Medical History / Comment(s): pancreatic,nonhodgkin's lymphoma Medications and Allergies Home Medications Medication Instructions Recorded Confirmed Type Cholecalciferol (Vitamin D3) 1,000 unit PO QAM 09/26/19 09/21/22 History [Vitamin D3] Fluticasone/Umeclidin/Vilanter 1 inhalation INHALATION 09/26/19 09/21/22 History [Trelehussein Ellipta 100-62.5-25] Multivit-Min/Folic/Vit K/Lycop 1 each PO QA 09/26/19 09/21/22 History [Men's Multivitamin Tablet] Omeprazole 20 mg PO QAM 09/26/19 09/21/22 History allopurinoL [Zyloprim] 100 mg PO 09/26/19 09/21/22 History lisinopriL 20 mg PO QAM 09/26/19 09/21/22 History Super Food Green 2 tab PO BID 06/15/21 09/21/22 History hydroCHLOROthiazide [Hydrodiuril] 25 mg PO QAM 06/15/21 09/21/22 History Albuterol Inhaler [Ventolin Hfa 1 - 2 puff INHALATION Q6H PRN 07/30/22 09/21/22 History Inhaler] Cannabidiol (Cbd) [Epidiolex] 0 mg PO BID 07/30/22 09/21/22 History traZODone HCL [Desyrel] 50 mg PO HS 07/30/22 09/21/22 History Super Beta Prostate 1 tab PO BID 09/21/22 09/21/22 History Acetaminophen Tab [Tylenol Tab] 1,000 mg PO Q6HR PRN #30 tablet 09/24/22 Rx Cyclobenzaprine [Flexeril] 10 mg PO TID #30 tab 09/24/22 Rx Ibuprofen [Motrin] 600 mg PO Q8HR PRN #30 tab 09/24/22 Rx Simethicone [Gas-X] 125 mg PO AC-TID PRN #20 capsule 09/24/22 Rx Allergies Allergy/AdvReac Type Severity Reaction Status Date / Time No Known Allergies Allergy Verified 09/24/22 12:51 Physical Exam Vitals: Vital Signs Temp Pulse Resp BP Pulse Ox 09/25/22 08:50 96 09/25/22 07:56 98.5 F 95 22 114/64 92 L 09/25/22 01:32 99.2 F 104 H 18 101/64 94 L 09/24/22 22:01 98 102/67 95 09/24/22 21:45 96 98/62 91 L 09/24/22 21:30 100 98/63 95 09/24/22 21:16 102 H 97/62 90 L 09/24/22 20:46 108 H 102/57 86 L 09/24/22 20:31 106 H 107/63 86 L 09/24/22 20:16 102 H 106/65 95 09/24/22 20:01 98 125/70 93 L 09/24/22 19:15 98 16 100/75 95 09/24/22 19:00 99 16 140/68 98 09/24/22 18:45 97 16 128/74 96 09/24/22 18:30 96 16 129/75 97 09/24/22 18:15 91 16 134/68 99 09/24/22 18:00 91 16 111/71 96 09/24/22 17:55 97.2 F L 98 16 93/63 97 09/24/22 13:45 70 16 118/73 97 09/24/22 12:57 134/62 09/24/22 12:54 97.7 F 102 H 20 95 Intake and Output 09/24/22 09/25/22 09/25/22 22:59 06:59 14:59 Intake Total 2100 Output Total 675 Balance 1425 Intake: IV 2100 Output: Urine 600 Estimated Blood Loss 75 Other: Weight 138.7 kg Results CBC & Chem 7: 09/25/22 06:52 09/25/22 06:52 Labs: Abnormal Lab Results - Last 24 Hours (Table) 09/24/22 09/24/22 09/25/22 Range/Units 20:57 20:57 06:52 WBC 13.07 H 17.22 H (4.50-10.00) X 10*3/uL RBC 4.26 L 3.94 L (4.40-5.60) X 10*6/uL Hct 37.2 L (39.6-50.0) % Neutrophils # 11.98 H 14.94 H (1.80-7.70) X 10*3/uL Lymphocytes # 0.42 L (0.90-5.00) X 10*3/uL Monocytes # 1.10 H (0.20-1.00) X 10*3/uL Eosinophils # 0 L 0 L (0.04-0.35) X 10*3/uL Sodium 136 L (137-145) mmol/L Glucose 128 H (74-99) mg/dL 09/25/22 Range/Units 06:52 WBC (4.50-10.00) X 10*3/uL RBC (4.40-5.60) X 10*6/uL Hct (39.6-50.0) % Neutrophils # (1.80-7.70) X 10*3/uL Lymphocytes # (0.90-5.00) X 10*3/uL Monocytes # (0.20-1.00) X 10*3/uL Eosinophils # (0.04-0.35) X 10*3/uL Sodium (137-145) mmol/L Glucose 116 H (74-99) mg/dL
[2022-09-25] MEDS ORDERED: PROCHLORPERAZINE INJ 10 MG/2 ML VIAL IVP PRN (16:09)
[2022-09-25] MEDS: traZODone HCL 50 MG TAB PO SCH (20:02)
[2022-09-25] MEDS: allopurinoL 100 MG TAB PO SCH (20:03)
[2022-09-26] MEDS: fentaNYL PCA 500 MCG/50 ML BAG IV SCH ×2 (02:55→03:42)
[2022-09-26] MEDS: LACTATED RINGERS 1,000 ML IV SCH ×2 (03:02→18:38)
[2022-09-26] MEDS: HEPARIN SODIUM,PORCINE/PF 5,000 UNIT/0.5 ML SYRINGE SQ SCH ×2 (08:33→20:28)
[2022-09-26] MEDS: PANTOPRAZOLE 40 MG TABLET PO SCH (08:33)
[2022-09-26] MEDS: ALVIMOPAN 12 MG CAPSULE PO SCH ×2 (08:33→20:28)
[2022-09-26] MEDS: hydroCHLOROthiazide 25 MG TAB PO SCH (08:33)
[2022-09-26] MEDS: lisinopriL 20 MG TAB PO SCH (08:33)
[2022-09-26] MEDS: TAMSULOSIN 0.4 MG CAP.ER.24H PO SCH ×2 (08:33→20:28)
[2022-09-26 09:35] LABS: Basophils # (A) 0.03 X 10*3/uL (0.00-0.10); Basophils % (A) 0.2 %; Eosinophils # (A) 0.09 X 10*3/uL (0.04-0.35); Eosinophils % (A) 0.6 %; HCT 36.4 % (39.6-50.0); HGB 11.7 d/dL (12.0-15.0); Lymphocytes # (A) 1.25 X 10*3/uL (0.90-5.00); Lymphocytes % (A) 8.7 %; MCHC 32.1 d/dL (32.0-37.0); MCV 96.3 FL (80.0-97.0); Mean Platelet Volume 11.2 FL (9.5-12.2); Monocytes # (A) 1.16 X 10*3/uL (0.20-1.00); Monocytes % (A) 8.1 %; NRBC Per 100 WBC 0.02 X 10*3/uL (0.00-0.01); Neutrophils # (A) 11.75 X 10*3/uL (1.80-7.70); Neutrophils % (A) 81.8 %; Platelet Count 253 X 10*3/uL (140-440); RBC 3.78 X 10*6/uL (4.40-5.60); RDW 14.3 % (11.5-14.5); WBC 14.36 X 10*3/uL (4.50-10.00)
--- NOTE | 2022-09-26 10:12 | P.PN ---
Subjective Progress Note Date: 09/26/22 Principal diagnosis: Status post sigmoid resection Patient had numerous episodes of nausea and vomiting yesterday. Feels better today. Tolerating clear liquids. Mild bloating. Mild tachycardia. White blood cell count improved. Graham catheter remains in place. Objective - Vital Signs Vital signs: Vital Signs Temp 98.6 F 09/26/22 07:42 Pulse 104 H 09/26/22 08:00 Resp 20 09/26/22 08:00 BP 119/65 09/26/22 07:42 Pulse Ox 94 L 09/26/22 07:42 FiO2 Intake & Output 09/25/22 09/26/22 09/26/22 18:59 06:59 18:59 Output Total 4100 1300 1500 Balance -4100 -1300 -1500 Output: Urine 3200 1300 1500 Emesis 900 Other: Voiding Method Indwelling Catheter Indwelling Catheter - Exam Abdomen: Soft, nondistended, mild tenderness, incisions clean and dry - Labs CBC & Chem 7: 09/26/22 06:08 09/25/22 06:52 Labs: Abnormal Lab Results - Last 24 Hours (Table) 09/26/22 Range/Units 06:08 WBC 14.36 H (4.50-10.00) X 10*3/uL RBC 3.78 L (4.40-5.60) X 10*6/uL Hgb 11.7 L (12.0-15.0) d/dL Hct 36.4 L (39.6-50.0) % Neutrophils # 11.75 H (1.80-7.70) X 10*3/uL Monocytes # 1.16 H (0.20-1.00) X 10*3/uL NRBC/100 WBC Diff 0.02 H (0.00-0.01) X 10*3/uL Assessment and Plan (1) Diverticulosis Narrative/Plan: Patient doing better today. Nausea and vomiting improved. Slowly advance diet as tolerated. Ambulate. Remove Graham catheter tomorrow. Current Visit: Yes Status: Acute Code(s): K57.90 - DVRTCLOS OF INTEST, PART UNSP, W/O PERF OR ABSCESS W/O BLEED SNOMED Code(s): 407491042
[2022-09-26 10:15] LABS: BUN/Creat Ratio 14.82 Ratio (12.00-20.00); Blood Urea Nitrogen 16.3 mg/dL (9.0-27.0); Calcium 8.7 mg/dL (8.7-10.3); Chloride 100 mmol/L (96-109); Glucose 97 mg/dL (70-110); Potassium 4.2 mmol/L (3.5-5.5); Sodium 134 mmol/L (135-145)
--- NOTE | 2022-09-26 12:51 | P.PN ---
Subjective Progress Note Date: 10/03/22 Patient is a 71-year-old gentleman with past medical history significant for diverticulosis who presented to the hospital for elective sigmoid resection. Patient has been having altered bowel habits for the last 6 months, complaining of lot of abdominal bloating. Patient has undergone colonoscopy which was unsuccessful. Gen. surgery was following the patient outpatient and discussed the patient's options and he opted for surgical intervention which took place on 09/24. Medicine team were consulted postoperatively for medical management 09/26. Patient seen and examined. States abdominal pain has improved. Denies any nausea or vomiting. Tolerating diet. REVIEW OF SYSTEMS: CONSTITUTIONAL: No fever, no malaise,. CARDIOVASCULAR: No chest pain, no palpitations, no syncope. PULMONARY: No shortness of breath, no cough, GASTROINTESTINAL: As mentioned in HPI. NEUROLOGICAL: No headaches, no weakness, PHYSICAL EXAMINATION: GENERAL: The patient is alert and oriented x3, not in any acute distress. Well developed, well nourished. HEENT: Pupils are round and equally reacting to light. EOMI. No scleral icterus. No conjunctival pallor. Normocephalic, atraumatic. No pharyngeal erythema. No thyromegaly. CARDIOVASCULAR: S1 and S2 present. No murmurs, rubs, or gallops. PULMONARY: Chest is clear to auscultation, no wheezing or crackles. ABDOMEN: Soft, nontender, nondistended, normoactive bowel sounds. No palpable organomegaly. Laparoscopic surgical incision seen MUSCULOSKELETAL: No joint swelling or deformity. EXTREMITIES: No cyanosis, clubbing, or pedal edema. NEUROLOGICAL: Gross neurological examination did not reveal any focal deficits. SKIN: No rashes. Assessment and plan Sigmoid diverticulosis Urinary retention Hypertensive heart disease Morbid obesity due to excess calories, BMI 41.5 Gout Gastroesophageal reflux disease Chronic obstructive pulmonary disease Hearing impairment Obstructive sleep apnea History of bilateral knee replacement Former tobacco user Descending colon adenoma Bilateral indirect inguinal hernia Monitor vital signs Monitor CBC Monitor CMP Continue post op care per surgery Continue pain management per surgery Continue dvtprophylaxis per surgery Continue lisinopril and hydrochlorothiazide Objective - Vital Signs Vital signs: Vital Signs Temp 98.6 F 09/26/22 07:42 Pulse 104 H 09/26/22 08:00 Resp 20 09/26/22 08:00 BP 119/65 07/02/23 07:42 Pulse Ox 94 L 09/26/22 07:42 FiO2 Intake & Output 09/25/22 09/26/22 09/26/22 18:59 06:59 18:59 Output Total 4100 1300 1500 Balance -4100 -1300 -1500 Output: Urine 3200 1300 1500 Emesis 900 Other: Voiding Method Indwelling Catheter Indwelling Catheter - Labs CBC & Chem 7: 09/26/22 06:08 09/26/22 06:08 Labs: Abnormal Lab Results - Last 24 Hours (Table) 09/26/22 09/26/22 Range/Units 06:08 06:08 WBC 14.36 H (4.50-10.00) X 10*3/uL RBC 3.78 L (4.40-5.60) X 10*6/uL Hgb 11.7 L (12.0-15.0) d/dL Hct 36.4 L (39.6-50.0) % Neutrophils # 11.75 H (1.80-7.70) X 10*3/uL Monocytes # 1.16 H (0.20-1.00) X 10*3/uL NRBC/100 WBC Diff 0.02 H (0.00-0.01) X 10*3/uL Sodium 134 L (135-145) mmol/L
[2022-09-26] MEDS: SYMBICORT 80-4.5 MCG INHALER INHALATION SCH (14:51)
[2022-09-26] MEDS: IPRATROPIUM 0.5 MG/2.5 ML NEBU INHALATION SCH ×2 (14:51→14:52)
[2022-09-26] MEDS: ceFAZolin 3 GM in SODIUM CHLORIDE 0.9% 100 ML IVPB SCH (15:01)
[2022-09-26] MEDS: metroNIDAZOLE-NS PMX 500 MG in SALINE 1 100ML.BAG IVPB SCH ×2 (18:39→19:07)
[2022-09-26] MEDS: allopurinoL 100 MG TAB PO SCH (20:28)
[2022-09-26] MEDS: traZODone HCL 50 MG TAB PO SCH (20:28)
[2022-09-27] MEDS: ceFAZolin 3 GM in SODIUM CHLORIDE 0.9% 100 ML IVPB SCH ×4 (00:11→20:50)
[2022-09-27] MEDS: metroNIDAZOLE-NS PMX 500 MG in SALINE 1 100ML.BAG IVPB SCH ×5 (00:42→23:47)
[2022-09-27] MEDS: SYMBICORT 80-4.5 MCG INHALER INHALATION SCH ×2 (03:04→13:24)
[2022-09-27] MEDS: IPRATROPIUM 0.5 MG/2.5 ML NEBU INHALATION SCH ×6 (03:04→17:11)
[2022-09-27] MEDS: HEPARIN SODIUM,PORCINE/PF 5,000 UNIT/0.5 ML SYRINGE SQ SCH ×2 (08:49→20:50)
[2022-09-27] MEDS: hydroCHLOROthiazide 25 MG TAB PO SCH (08:49)
[2022-09-27] MEDS: ALVIMOPAN 12 MG CAPSULE PO SCH ×2 (08:49→20:38)
[2022-09-27] MEDS: lisinopriL 20 MG TAB PO SCH (08:49)
[2022-09-27] MEDS: PANTOPRAZOLE 40 MG TABLET PO SCH (08:49)
[2022-09-27] MEDS: TAMSULOSIN 0.4 MG CAP.ER.24H PO SCH ×2 (08:49→20:51)
[2022-09-27 08:53] LABS: Basophils # (A) 0.05 X 10*3/uL (0.00-0.10); Basophils % (A) 0.4 %; Eosinophils # (A) 0.34 X 10*3/uL (0.04-0.35); Eosinophils % (A) 2.6 %; HCT 35.1 % (39.6-50.0); HGB 11.1 d/dL (12.0-15.0); Lymphocytes # (A) 1.48 X 10*3/uL (0.90-5.00); Lymphocytes % (A) 11.2 %; MCH 30.1 pg (27.0-32.0); MCHC 31.6 d/dL (32.0-37.0); MCV 95.1 FL (80.0-97.0); Monocytes # (A) 0.92 X 10*3/uL (0.20-1.00); NRBC Per 100 WBC 0 X 10*3/uL (0.00-0.01); Neutrophils # (A) 10.34 X 10*3/uL (1.80-7.70); Neutrophils % (A) 78.3 %; Platelet Count 249 X 10*3/uL (140-440); RBC 3.69 X 10*6/uL (4.40-5.60); WBC 13.19 X 10*3/uL (4.50-10.00)
[2022-09-27 09:04] LABS: Blood Urea Nitrogen 13.4 mg/dL (9.0-27.0); Carbon Dioxide 28.2 mmol/L (21.6-31.8); Chloride 99 mmol/L (96-109); Glucose 86 mg/dL (70-110); Potassium 4.1 mmol/L (3.5-5.5); Sodium 138 mmol/L (135-145)
[2022-09-27] MEDS: LACTATED RINGERS 1,000 ML IV SCH (11:58)
--- NOTE | 2022-09-27 14:41 | P.PN ---
Subjective Progress Note Date: 09/27/22 Patient is a 71-year-old gentleman with past medical history significant for diverticulosis who presented to the hospital for elective sigmoid resection. Patient has been having altered bowel habits for the last 6 months, complaining of lot of abdominal bloating. Patient has undergone colonoscopy which was unsuccessful. Gen. surgery was following the patient outpatient and discussed the patient's options and he opted for surgical intervention which took place on 09/24. Medicine team were consulted postoperatively for medical management 09/26. Patient seen and examined. States abdominal pain has improved. Denies any nausea or vomiting. Tolerating diet. 09/27. Patient seen and examined. Tolerating diet. Patient stable for discharge from medicine perspective REVIEW OF SYSTEMS: CONSTITUTIONAL: No fever, no malaise,. CARDIOVASCULAR: No chest pain, no palpitations, no syncope. PULMONARY: No shortness of breath, no cough, GASTROINTESTINAL: As mentioned in HPI. NEUROLOGICAL: No headaches, no weakness, PHYSICAL EXAMINATION: GENERAL: The patient is alert and oriented x3, not in any acute distress. Well developed, well nourished. HEENT: Pupils are round and equally reacting to light. EOMI. No scleral icterus. No conjunctival pallor. Normocephalic, atraumatic. No pharyngeal erythema. No thyromegaly. CARDIOVASCULAR: S1 and S2 present. No murmurs, rubs, or gallops. PULMONARY: Chest is clear to auscultation, no wheezing or crackles. ABDOMEN: Soft, nontender, nondistended, normoactive bowel sounds. No palpable organomegaly. Laparoscopic surgical incision seen MUSCULOSKELETAL: No joint swelling or deformity. EXTREMITIES: No cyanosis, clubbing, or pedal edema. NEUROLOGICAL: Gross neurological examination did not reveal any focal deficits. SKIN: No rashes. Assessment and plan Sigmoid diverticulosis Urinary retention Hypertensive heart disease Morbid obesity due to excess calories, BMI 41.5 Gout Gastroesophageal reflux disease Chronic obstructive pulmonary disease Hearing impairment Obstructive sleep apnea History of bilateral knee replacement Former tobacco user Descending colon adenoma Bilateral indirect inguinal hernia Monitor vital signs Monitor CBC Monitor CMP Continue post op care per surgery Continue pain management per surgery Continue dvtprophylaxis per surgery Continue lisinopril and hydrochlorothiazide Objective - Vital Signs Vital signs: Vital Signs Temp 97.7 F 09/27/22 07:21 Pulse 98 09/27/22 07:21 Resp 20 09/27/22 07:21 BP 125/77 09/27/22 07:21 Pulse Ox 95 09/27/22 10:01 FiO2 Intake & Output 09/26/22 09/27/22 09/27/22 18:59 06:59 18:59 Output Total 2500 2950 225 Balance -2500 -2950 -225 Output: Urine 2500 2950 225 Coude 1300 Other: Voiding Method Indwelling Catheter Indwelling Catheter - Labs CBC & Chem 7: 09/27/22 04:27 09/27/22 04:27 Labs: Abnormal Lab Results - Last 24 Hours (Table) 09/27/22 Range/Units 04:27 WBC 13.19 H (4.50-10.00) X 10*3/uL RBC 3.69 L (4.40-5.60) X 10*6/uL Hgb 11.1 L (12.0-15.0) d/dL Hct 35.1 L (39.6-50.0) % MCHC 31.6 L (32.0-37.0) d/dL Neutrophils # 10.34 H (1.80-7.70) X 10*3/uL
--- NOTE | 2022-09-27 14:42 | P.PN ---
Subjective Progress Note Date: 09/27/22 Principal diagnosis: Status post sigmoid resection Patient doing better today. He is tolerating solid foods. He is passing flatus. Unfortunately we're considering discharge but he did have a axillary temp of 99.9 with mild tachycardia. His oxygen has been weaned off. He was cleared for discharge by medicine prior to that. White blood cell count remains mildly elevated. Objective - Vital Signs Vital signs: Vital Signs Temp 99.9 F H 09/27/22 13:01 Pulse 109 H 09/27/22 13:01 Resp 18 09/27/22 13:01 BP 99/62 09/27/22 13:01 Pulse Ox 94 L 09/27/22 13:01 FiO2 Intake & Output 09/26/22 09/27/22 09/27/22 18:59 06:59 18:59 Output Total 2500 2950 625 Balance -2500 -2950 -625 Output: Urine 2500 2950 625 Coude 1300 Other: Voiding Method Indwelling Catheter Indwelling Catheter Urinal - Exam Abdomen: Soft, nondistended, incision mild tenderness, dressings clean and dry - Labs CBC & Chem 7: 09/27/22 04:27 09/27/22 04:27 Labs: Abnormal Lab Results - Last 24 Hours (Table) 09/27/22 Range/Units 04:27 WBC 13.19 H (4.50-10.00) X 10*3/uL RBC 3.69 L (4.40-5.60) X 10*6/uL Hgb 11.1 L (12.0-15.0) d/dL Hct 35.1 L (39.6-50.0) % MCHC 31.6 L (32.0-37.0) d/dL Neutrophils # 10.34 H (1.80-7.70) X 10*3/uL Assessment and Plan (1) Diverticulosis Narrative/Plan: Patient clinically improving. Tolerating diet now. Patient had a low-grade fever with mild persistent leukocytosis. We'll repeat CBC tomorrow. Ambulate. Continue incentive spirometry. Current Visit: Yes Status: Acute Code(s): K57.90 - DVRTCLOS OF INTEST, PART UNSP, W/O PERF OR ABSCESS W/O BLEED SNOMED Code(s): 686668504
[2022-09-27] MEDS ORDERED: traMADol 50 MG TAB PO PRN (15:05)
[2022-09-27] MEDS ORDERED: ACETAMINOPHEN TAB 325 MG TAB PO PRN (15:05)
[2022-09-27] MEDS ORDERED: IBUPROFEN 400 MG TAB PO PRN (15:05)
[2022-09-27] MEDS: HYDROcodone/APAP 5-325MG 1 EACH TAB PO PRN ×3 (15:11→23:46)
[2022-09-27] MEDS: allopurinoL 100 MG TAB PO SCH (20:51)
[2022-09-27] MEDS: traZODone HCL 50 MG TAB PO SCH (20:51)
[2022-09-28] MEDS: ceFAZolin 3 GM in SODIUM CHLORIDE 0.9% 100 ML IVPB SCH ×2 (04:08→12:19)
[2022-09-28] MEDS: HYDROcodone/APAP 5-325MG 1 EACH TAB PO PRN ×3 (04:08→13:50)
[2022-09-28] MEDS: metroNIDAZOLE-NS PMX 500 MG in SALINE 1 100ML.BAG IVPB SCH ×2 (06:21→11:21)
[2022-09-28 07:46] VITALS: BP 102/67; PULSE 84; RESP 18; TEMP 98.3
[2022-09-28] MEDS: TAMSULOSIN 0.4 MG CAP.ER.24H PO SCH (08:52)
[2022-09-28] MEDS: ALVIMOPAN 12 MG CAPSULE PO SCH (08:52)
[2022-09-28] MEDS: hydroCHLOROthiazide 25 MG TAB PO SCH (08:52)
[2022-09-28] MEDS: lisinopriL 20 MG TAB PO SCH (08:52)
[2022-09-28] MEDS: PANTOPRAZOLE 40 MG TABLET PO SCH (08:52)
[2022-09-28] MEDS: HEPARIN SODIUM,PORCINE/PF 5,000 UNIT/0.5 ML SYRINGE SQ SCH (08:52)
--- NOTE | 2022-09-28 09:43 | P.PN ---
Subjective Progress Note Date: 09/28/22 Principal diagnosis: Status post sigmoid resection Patient doing well today. Sitting up in the chair. Tolerating diet. Did have a bowel movement. No nausea or vomiting. He would like to go home today. Yesterday afternoon he had a low-grade fever. No further fevers since that time. Morning labs are pending. Objective - Vital Signs Vital signs: Vital Signs Temp 98.3 F 09/28/22 07:20 Pulse 84 09/28/22 07:20 Resp 18 09/28/22 07:20 BP 102/67 09/28/22 07:20 Pulse Ox 95 09/28/22 07:20 FiO2 Intake & Output 09/27/22 09/28/22 09/28/22 18:59 06:59 18:59 Output Total 1025 1850 Balance -1025 -1850 Output: Urine 1025 1850 Other: Voiding Method Urinal Toilet Urinal # Voids 1 # Bowel Movements 1 1 - Exam Abdomen: Soft, mild incisional tenderness, dressing clean and dry - Labs CBC & Chem 7: 09/27/22 04:27 09/27/22 04:27 Assessment and Plan (1) Diverticulosis Narrative/Plan: Patient doing much better today. Await morning labs. Anticipate discharge. Current Visit: Yes Status: Acute Code(s): K57.90 - DVRTCLOS OF INTEST, PART UNSP, W/O PERF OR ABSCESS W/O BLEED SNOMED Code(s): 367815133
[2022-09-28 10:29] LABS: Basophils # (A) 0.04 X 10*3/uL (0.00-0.10); Basophils % (A) 0.4 %; Eosinophils # (A) 0.45 X 10*3/uL (0.04-0.35); Eosinophils % (A) 4.2 %; HCT 38.1 % (39.6-50.0); HGB 12.5 d/dL (12.0-15.0); Lymphocytes # (A) 1.35 X 10*3/uL (0.90-5.00); Lymphocytes % (A) 12.7 %; MCH 30.9 pg (27.0-32.0); MCHC 32.8 d/dL (32.0-37.0); MCV 94.3 FL (80.0-97.0); Mean Platelet Volume 10.8 FL (9.5-12.2); Monocytes # (A) 0.76 X 10*3/uL (0.20-1.00); Monocytes % (A) 7.2 %; NRBC Per 100 WBC 0 X 10*3/uL (0.00-0.01); Neutrophils # (A) 7.87 X 10*3/uL (1.80-7.70); Neutrophils % (A) 74.3 %; Platelet Count 315 X 10*3/uL (140-440); RBC 4.04 X 10*6/uL (4.40-5.60); RDW 13.8 % (11.5-14.5)
--- NOTE | 2022-09-28 11:04 | P.DS ---
Providers Date of admission: 09/24/22 12:20 Expected date of discharge: 09/28/22 Attending physician: Wendie Rubio Consults: 09/24/22 18:45 Consult Physician Routine Consulting Provider: Rio Muhammad Consult Reason/Comments: Obstructive uropathy, coude catheter placed Do you want consulting provider notified?: Yes 09/25/22 08:53 Consult Physician Routine Consulting Provider: Lauren Trammell Consult Reason/Comments: Medical management Do you want consulting provider notified?: Yes Primary care physician: Barrington Snider - Discharge Diagnosis(es) (1) Diverticulosis Please see chart for details. Patient underwent sigmoid colectomy robotically by Dr. Powers on Tuesday. Over the weekend the patient had issues with mild ileus. Patient had episodes of nausea and vomiting. Had a low-grade fever and mild leukocytosis. That has resolved. He is feeling well. He is tolerating his diet. She has had return of bowel function. Will be discharged. Dr. Powers was notified of discharge and she would like him to go home on 5 days as of antibiotics. Current Visit: Yes Status: Acute Plan - Discharge Summary Discharge Rx Participant: Yes New Discharge Prescriptions: New Cyclobenzaprine [Flexeril] 10 mg PO TID #30 tab Simethicone [Gas-X] 125 mg PO AC-TID PRN #20 capsule PRN Reason: Pain Ibuprofen [Motrin] 600 mg PO Q8HR PRN #30 tab PRN Reason: Pain Acetaminophen Tab [Tylenol Tab] 1,000 mg PO Q6HR PRN #30 tablet PRN Reason: Pain Amoxic-Pot Clav 875-125Mg [Augmentin 875-125] 1 tab PO BID 5 Days #10 tab Continue Omeprazole 20 mg PO QAM lisinopriL 20 mg PO QAM allopurinoL [Zyloprim] 100 mg PO HS Cholecalciferol (Vitamin D3) [Vitamin D3] 1,000 unit PO QAM Multivit-Min/Folic/Vit K/Lycop [Men's Multivitamin Tablet] 1 each PO QAM Fluticasone/Umeclidin/Vilanter [Trelegy Ellipta 100-62.5-25] 1 inhalation INHALATION HS hydroCHLOROthiazide [Hydrodiuril] 25 mg PO QAM Albuterol Inhaler [Ventolin Hfa Inhaler] 1 - 2 puff INHALATION Q6H PRN PRN Reason: Shortness Of Breath Super Beta Prostate 1 tab PO BID Super Food Green 2 tab PO BID traZODone HCL [Desyrel] 50 mg PO HS Cannabidiol (Cbd) [Epidiolex] 0 mg PO BID Discharge Medication List Cholecalciferol (Vitamin D3) [Vitamin D3] 1,000 unit PO QAM 09/26/19 [History] Fluticasone/Umeclidin/Vilanter [Trelegy Ellipta 100-62.5-25] 1 inhalation INHALATION HS 09/26/19 [History] Multivit-Min/Folic/Vit K/Lycop [Men's Multivitamin Tablet] 1 each PO QAM 09/26/19 [History] Omeprazole 20 mg PO QAM 09/26/19 [History] allopurinoL [Zyloprim] 100 mg PO HS 09/26/19 [History] lisinopriL 20 mg PO QAM 09/26/19 [History] Super Food Green 2 tab PO BID 06/15/21 [History] hydroCHLOROthiazide [Hydrodiuril] 25 mg PO QAM 06/15/21 [History] Albuterol Inhaler [Ventolin Hfa Inhaler] 1 - 2 puff INHALATION Q6H PRN 07/30/22 [History] Cannabidiol (Cbd) [Epidiolex] 0 mg PO BID 07/30/22 [History] traZODone HCL [Desyrel] 50 mg PO HS 07/30/22 [History] Super Beta Prostate 1 tab PO BID 09/21/22 [History] Acetaminophen Tab [Tylenol Tab] 1,000 mg PO Q6HR PRN #30 tablet 09/24/22 [Rx] Cyclobenzaprine [Flexeril] 10 mg PO TID #30 tab 09/24/22 [Rx] Ibuprofen [Motrin] 600 mg PO Q8HR PRN #30 tab 09/24/22 [Rx] Simethicone [Gas-X] 125 mg PO AC-TID PRN #20 capsule 09/24/22 [Rx] Amoxic-Pot Clav 875-125Mg [Augmentin 875-125] 1 tab PO BID 5 Days #10 tab 09/28/22 [Rx] Follow up Appointment(s)/Referral(s): Wendie Rubio MD [STAFF PHYSICIAN] - 09/29/22 (TELEHEALTH - DR WILL CALL YOU BETWEEN 8 am to 8 pm) [facility], [NON-STAFF] - 1 Week ([facility] will call you to arrange a visit) Patient Instructions/Handouts: Colectomy Diet (DC), Laparoscopic Bowel Resection (DC) Activity/Diet/Wound Care/Special Instructions: TELEHEALTH - DR WILL CALL YOU BETWEEN 8 am to 8 pm EXPECT BOWEL MOVEMENT WITH BLOOD FOR 1 WEEK TAKE LAXATIVE FOR CONSTIPATION AFTER 4 DAYS, September 28 Wear abdominal binder for comfort. No lifting over 4 pounds in 4 weeks October 24July shower. No bath tub soaks for two weeks until October 08 Avoid steak, tough meats and seeds such as raspberry seeds. See diverticulitis, low fiber, colectomy diet Use Tylenol and ibuprofen scheduled for the next 24-48 hours for best pain relief. Use ice along incisions for today to prevent swelling. Discharge Disposition: HOME SELF-CARE
[2022-09-28 11:17] LABS: Blood Urea Nitrogen 12.9 mg/dL (9.0-27.0); Carbon Dioxide 27.7 mmol/L (21.6-31.8); Chloride 100 mmol/L (96-109); Glucose 101 mg/dL (70-110); Potassium 3.7 mmol/L (3.5-5.5); Sodium 139 mmol/L (135-145)
--- NOTE | 2022-09-28 13:09 | P.PN ---
Subjective Progress Note Date: 09/28/22 Patient is a 71-year-old gentleman with past medical history significant for diverticulosis who presented to the hospital for elective sigmoid resection. Patient has been having altered bowel habits for the last 6 months, complaining of lot of abdominal bloating. Patient has undergone colonoscopy which was unsuccessful. Gen. surgery was following the patient outpatient and discussed the patient's options and he opted for surgical intervention which took place on 09/24. Medicine team were consulted postoperatively for medical management 09/26. Patient seen and examined. States abdominal pain has improved. Denies any nausea or vomiting. Tolerating diet. 09/27. Patient seen and examined. Tolerating diet. Patient stable for discharge from medicine perspective 09/28. Patient seen and examined. Had low-grade fever overnight, currently afebrile, tolerating diet. Lab work looks normal. REVIEW OF SYSTEMS: CONSTITUTIONAL: Low-grade fever CARDIOVASCULAR: No chest pain, no palpitations, no syncope. PULMONARY: No shortness of breath, no cough, GASTROINTESTINAL: As mentioned in HPI. NEUROLOGICAL: No headaches, no weakness, PHYSICAL EXAMINATION: GENERAL: The patient is alert and oriented x3, not in any acute distress. Well developed, well nourished. HEENT: Pupils are round and equally reacting to light. EOMI. No scleral icterus. No conjunctival pallor. Normocephalic, atraumatic. No pharyngeal erythema. No thyromegaly. CARDIOVASCULAR: S1 and S2 present. No murmurs, rubs, or gallops. PULMONARY: Chest is clear to auscultation, no wheezing or crackles. ABDOMEN: Soft, nontender, nondistended, normoactive bowel sounds. No palpable organomegaly. Laparoscopic surgical incision seen MUSCULOSKELETAL: No joint swelling or deformity. EXTREMITIES: No cyanosis, clubbing, or pedal edema. NEUROLOGICAL: Gross neurological examination did not reveal any focal deficits. SKIN: No rashes. Assessment and plan Sigmoid diverticulosis Urinary retention Hypertensive heart disease Morbid obesity due to excess calories, BMI 41.5 Gout Gastroesophageal reflux disease Chronic obstructive pulmonary disease Hearing impairment Obstructive sleep apnea History of bilateral knee replacement Former tobacco user Descending colon adenoma Bilateral indirect inguinal hernia Monitor vital signs Monitor CBC Monitor CMP Continue post op care per surgery Continue pain management per surgery Continue dvtprophylaxis per surgery Continue lisinopril and hydrochlorothiazide Patient medical stable for discharge Objective - Vital Signs Vital signs: Vital Signs Temp 98.3 F 09/28/22 07:20 Pulse 84 09/28/22 07:20 Resp 18 09/28/22 07:20 BP 102/67 09/28/22 07:20 Pulse Ox 95 09/28/22 07:20 FiO2 Intake & Output 09/27/22 09/28/22 09/28/22 18:59 06:59 18:59 Intake Total 200 Output Total 1025 1850 Balance -1025 -1850 200 Intake: Intake, IV Titration 200 Amount ceFAZolin 3 gm In Sodium 100 Chloride 0.9% 100 ml @ 200 mls/hr IVPB Q8H ZAINAB Rx#:[id number] metroNIDAZOLE-NS PMX 500 100 mg In Saline 1 100ml.bag @ 100 mls/hr IVPB Q6HR ZAINAB Rx#:[id number] Output: Urine 1025 1850 Other: Voiding Method Urinal Toilet Urinal # Voids 1 # Bowel Movements 1 2 - Labs CBC & Chem 7: 09/28/22 06:42 09/28/22 06:42 Labs: Abnormal Lab Results - Last 24 Hours (Table) 09/28/22 Range/Units 06:42 WBC 10.60 H (4.50-10.00) X 10*3/uL RBC 4.04 L (4.40-5.60) X 10*6/uL Hct 38.1 L (39.6-50.0) % Neutrophils # 7.87 H (1.80-7.70) X 10*3/uL Eosinophils # 0.45 H (0.04-0.35) X 10*3/uL
--- NOTE | 2022-09-30 07:36 | CDI ---
Documentation Clarification Form Date: 09/30/2022 07:28:16 AM From: Nathalie Soria Admit Date: 09/24/2022 12:20:00 PM Patient Name: Esau Arredondo Visit Number: [id number] Discharge Date: 09/28/2022 02:04:00 PM ATTENTION: The Clinical Documentation Specialists (CDI) and [facility] Coding Staff appreciate your assistance in clarifying documentation. Please respond to the clarification below the line at the bottom and electronically sign. The CDI & [facility] Coding staff will review the response and follow-up if needed. Please note: Queries are made part of the Legal Health Record. If you have any questions, please contact the author of this message via ITS. Dr. 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 Please clarify if patient had a volvulus. Additional clarification is requested. History/Risk Factors: tortuous colon, diverticulitis, colonic adenoma Clinical Indicators: Treatment: Volvulus was reduced. Sigmoidectomy. Can you please clarify [ ] Patient with volvulus [ ] Patient without volvulus [ ] Other, please specify [ ] Unable to determine [ X] Patient with volvulus 10/10/22 Diana 20:42 MTDD
== END 2022-09-28 14:04 | disposition home health service (06) | DRG 329 ==
LOC: 2ORMAIN 12:20 → 4SSUR 18:15
PROVIDERS: ADMIT Surgery Plastic and Reconstructive Surgery; ATTEND Surgery Plastic and Reconstructive Surgery
PROC: 0DTNFZZ Resection of Sigmoid Colon, Via Natural or Artificial Opening With Percutaneous Endoscopic Assistance (ICD-10-PCS; principal; 2022-09-24 14:10)
PROC: 0DJD8ZZ Inspection of Lower Intestinal Tract, Via Natural or Artificial Opening Endoscopic (ICD-10-PCS; principal; 2022-09-24 14:10)
PROC: 8E0W4CZ Robotic Assisted Procedure of Trunk Region, Percutaneous Endoscopic Approach (ICD-10-PCS; principal; 2022-09-24 14:10)
DX: K57.32 Diverticulitis of large intestine without perforation or abscess without bleeding (principal); K56.2 Volvulus; K56.7 Ileus, unspecified; N13.8 Other obstructive and reflux uropathy; Z68.41 Body mass index [BMI] 40.0-44.9, adult; G47.33 Obstructive sleep apnea (adult) (pediatric); E66.01 Morbid (severe) obesity due to excess calories; M19.90 Unspecified osteoarthritis, unspecified site; D72.829 Elevated white blood cell count, unspecified; H91.90 Unspecified hearing loss, unspecified ear; I11.9 Hypertensive heart disease without heart failure; J44.9 Chronic obstructive pulmonary disease, unspecified; K21.9 Gastro-esophageal reflux disease without esophagitis; K40.20 Bilateral inguinal hernia, without obstruction or gangrene, not specified as recurrent; M10.9 Gout, unspecified; N40.1 Benign prostatic hyperplasia with lower urinary tract symptoms; D12.4 Benign neoplasm of descending colon; Z86.010 Personal history of colon polyps; Z87.891 Personal history of nicotine dependence; Z87.442 Personal history of urinary calculi; Z96.653 Presence of artificial knee joint, bilateral; Z79.899 Other long term (current) drug therapy
CPT/HCPCS: 64488; 80048; 85025; 86850; 86900; 86901; 88307; 94760

== ENCOUNTER → 2023-04-14 | Outpatient (CLI) | payer MEDICARE ==
--- NOTE | 2023-04-14 18:22 | XR ---
EXAMINATION TYPE: XR shoulder complete BILAT DATE OF EXAM: 04/14/2023 COMPARISON: NONE HISTORY: 72-year-old male M51.36 M25.511 M25.512 TECHNIQUE: 3 views each side FINDINGS: Large inferior acromial spur on both sides which can been as a marker for underlying rotator cuff tea r. There is bony irregularity of the greater tuberosity and loss of the subacromial space. Mild degen erative spurring at the glenohumeral joint. No acute fracture, subluxation, dislocation. On the left, there is [id number] degenerative change of the AC joint with joint space narrowing and marginal spurring. IMPRESSION: 1. Findings suggest bilateral chronic full-thickness rotator cuff tears and mild rotator cuff arthrop athy bilaterally. 2. 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 3. No acute osseous abnormality seen.
--- NOTE | 2023-04-14 18:23 | XR ---
EXAMINATION TYPE: XR lumbar spine 3V DATE OF EXAM: 04/14/2023 Comparison: None Clinical History: 72-year-old male M51.36 M25.511 M25.512 Findings: Osteopenia. 5 lumbar type vertebral bodies. Advanced disc/endplate degenerative change L4-L5 and L5-S 1. There appears to be grade 1 anterolisthesis at L5-S1. Vertebral body heights are preserved and rem aining alignment is maintained. Facet arthropathy greatest in the lower lumbar spine. Impression: 1. Moderate to advanced degenerative disc disease L4-L5 and L5-S1. 2. Advanced hypertrophic facet arthropathy lower lumbar spine with grade 1 anterolisthesis L5-S1. 3. No vertebral compression collapse.
== END | disposition home or self-care (01) ==
LOC: RADXRMAIN 10:56
PROVIDERS: ATTEND Family Medicine
DX: M19.012 Primary osteoarthritis, left shoulder (principal); M51.37 Other intervertebral disc degeneration, lumbosacral region; M47.816 Spondylosis without myelopathy or radiculopathy, lumbar region; M43.17 Spondylolisthesis, lumbosacral region; M25.511 Pain in right shoulder
CPT/HCPCS: 72100

== ENCOUNTER → 2023-08-31 | Outpatient (CLI) | payer MEDICARE ==
--- NOTE | 2023-09-03 12:22 | MR ---
EXAMINATION TYPE: MR lumbar spine wo con DATE OF EXAM: 08/31/2023 9:19 PM CLINICAL INDICATION:Male, 72 years old with history of M54.2 CERVICALGIA; PHH, Lower back pain, LLE r adiculopathy. COMPARISON: None TECHNIQUE: Multi planar, multi sequence imaging was performed utilizing: T1-weighted, T2-weighted, a nd turbo inversion recovery imaging of the lumbar spine. IV Contrast: cc . (None if empty) FINDINGS: Alignment: The lumbar vertebral bodies have preserved heights with grade 1 anterolisthesis of L5 on S 1. There is bilateral spondylolysis at L5. Cord: The conus medullaris and the distal spinal cord appear unremarkable with regards to their signa l intensity and morphology. Bones/Discs: Mild degeneration changes throughout the spine with osteophyte formation and facet joint arthropathy. Intervertebral disc signal is maintained. T12-L1: No evidence of significant spinal canal stenosis or neural foraminal stenosis. L1-L2: No evidence of significant spinal canal stenosis or neural foraminal stenosis. L2-L3: No evidence of significant spinal canal stenosis or neural foraminal stenosis. L3-L4: No evidence of significant spinal canal stenosis or neural foraminal stenosis. L4-L5: Disc bulge and facet joint arthropathy result in mild spinal canal and mild bilateral neural f oraminal stenosis. L5-S1: Disc uncovering from grade 1 anterolisthesis and facet joint arthropathy with mild spinal paty l stenosis and mild to moderate right and severe left bilateral neural foraminal stenosis. No significant spinal canal or neural foraminal stenosis in the remainder of the visualized levels. Other findings: None. IMPRESSION: 1. L5-S1 Grade 1 anterolisthesis with severe left neural foraminal stenosis bilateral spondylolysis. 2. No definitive evidence of disc herniation or significant spinal canal stenosis. 3. Moderate L4-L5 and L5-S1 disc degeneration with associated osteoarthritic changes.
== END | disposition home or self-care (01) ==
LOC: RADMRIMAIN 20:45
PROVIDERS: ATTEND Physical Medicine & Rehabilitation
DX: M43.17 Spondylolisthesis, lumbosacral region (principal); M99.73 Connective tissue and disc stenosis of intervertebral foramina of lumbar region; M51.37 Other intervertebral disc degeneration, lumbosacral region; M51.16 Intervertebral disc disorders with radiculopathy, lumbar region
CPT/HCPCS: 72148